=== PATIENT | female | born 1975 | race Caucasian/White ===

== ENCOUNTER 2017-01-08 06:10 | Emergency (ER) | payer MEDICAID ==
[2017-01-08 06:26] VITALS: TEMP 97.5
--- NOTE | 2017-01-08 06:55 | EDPHY ---
H & P Smoking Status: Current every day smoker HPI/ROS: CC: lower abdomial pain x 1.5 hours HPI: This 41-year-old female with past medical history of ovarian cysts, anxiety, fibromyalgia, hypertension, high cholesterol, and diabetes presents to the emergency department today complaining of lower abdominal discomfort that started 1 and 0.5 hours prior to arrival. She states the pain is 8/10. She points across her whole lower abdomen and cannot localize the pain but states it feels like her prior ovarian cyst. She has vaginal pressure when she sits. She was fine yesterday and has not been ill recently. She denies fever, chills , nausea, vomiting, dysuria, vaginal bleeding, or vaginal discharge. Normal bowel movements. She is sexually active. The 1st day of her last menstrual period was 2 weeks ago. She is 3 para 3, (+ 1 adopted child). She has had a tubal ligation. REVIEW OF SYSTEMS: Constitutional: No fever, no chills. Eyes: No discharge. ENT: No sore throat. Respiratory: No shortness of breath. Cardiac: No chest pain, no palpitations. Gastrointestinal: See HPI. Genitourinary: No hematuria. Musculoskeletal: No back pain. Skin: No rashes. Neurological: No headache. (Rosa Paz) Past Medical/Surgical History: PMH: Includes ovarian cysts, anxiety, fibromyalgia, kidney stones, hypertension, hyperlipidemia, diabetes, irritable bowel PSH: Tubal ligation, kidney stone surgery FH: Father has a history of hypertension, diabetes, high cholesterol; mother "has a hole in her heart" NKDA Meds: Lisinopril 40mg daily (Rosa Paz) Social History: The patient states she smokes 1/2 pack of tobacco products per day since age of 13; she drinks alcohol and her last drink was yesterday; she does smoke marijuana. Her primary care provider is April Loredo (Rosa Paz) Physical Exam: Physical Exam General Appearance: alert. no apparent distress EENT: PERRL/EOMI, normal ENT inspection, pharynx normal, TMs normal. No tonsillar exudate, no anisocoria, no purulent nasal drainage Neck: non-tender, full range of motion, supple, normal inspection. No: lymphadenopathy, no subcutaneous emphysema, no Kernig's sign, no Brudzinski's sign Respiratory: chest non-tender, lungs clear, normal breath sounds. No respiratory distress, no accessory muscle use, no decreased breath sounds, no crackles, no rhonchi, no stridor, no wheezing, no prolonged expiration, no splinting Cardiac/Chest: normal peripheral pulses, regular rate, regular rhythm. No edema, no gallop, no JVD, no bradycardia, no tachycardia, no murmur, no friction rub Peripheral Pulses: 2+: femoral (R), femoral (L), dorsalis-pedis (R), dorsalis- pedis (L) Abdomen: normal bowel sounds, non-tender, soft. No organomegaly, no pulsatile mass, non-distended, no guarding, no rebound, no hernia, not rigid, no ascites Back: normal inspection. No: CVA tenderness Skin: normal color, , warm/dry. No cyanosis, no diaphoresis, no jaundice, no rash, no signs of IVDA, no decubitus Lymphatic: no adenopathy Extremities: normal range of motion in all extremities, non-tender, normal inspection, normal capillary refill. No: pedal edema, swelling, Carlos's sign Neuro: no motor/sensory deficits, alert, normal mood/affect, oriented x 3. 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 II-XII, normal gait, no facial droop, no motor weakness, no sensory deficit, no speech abnormalities Psych; no cognition abnormalities, no psychiatric abnormalities (Martin Montanez ) Constitutional: Initial Vital Signs Temperature (C) 36.4 C 01/08/17 06:21 Heart Rate 98 01/08/17 06:21 Respiratory Rate 16 01/08/17 06:21 Blood Pressure 166/101 H 01/08/17 06:21 O2 Sat (%) 98 01/08/17 06:21 O2 Delivery Mode Room Air Allergies/Adverse Reactions: No Known Allergies Allergy (Verified 01/08/17 06:20) Home Medications: Medication Instructions Recorded Ibuprofen 01/08/17 Lisinopril [Zestril 40 mg (*)] 40 mg PO DAILY 01/08/17 Medical Decision Making - Diagnostics Imaging Results: Imaging Impressions Abdomen Ultrasound 01/08/17 06:56 Impression: Appendix not identified. Findings discussed with Emergency Department physician, Martin Montanez, on January 08, 2017 at 8:15 a.m. Pelvic/Renal Ultrasound 01/08/17 06:56 Impression: 1. Normal ovaries. No ovarian cyst, torsion, or free fluid. 2. Normal uterus. Findings discussed with Emergency Department physician, Martin Montanez, on January 08, 2017 at 8:31 a.m. ED Course/Re-evaluation: The patient was seen in the history of present illness was obtained. The patient was then signed out to the oncoming provider, Dr. Montanez for exam, further evaluation, workup and disposition. (Rosa Paz) 8:30 a.m. we discussed her ultrasound results which are inconclusive. She does have an elevated white blood cell count. On reexamination she does not have any right lower quadrant tenderness. I did recommend a CT scan to rule out appendicitis considering her elevated white count and initial pain area. The patient declines this. I also recommended a pelvic examination. She states that it hurt when she had the ultrasound performed. She denies any discharge or any promiscuous sexual behavior. She declined pelvic exam and states that she will follow up with her doctor at the [facility] over the next couple of days. I urged her vigorously to return to the emergency department later this afternoon or sooner for symptoms have not improved or if they have worsened. She currently feels comfortable and is eager to go home to be with her grandson. (Martin Montanez) Differential Diagnosis: Partial list of the Differential diagnosis considered include but were not limited to; appendicitis, ovarian cyst, ovarian torsion, urinary tract infection, PID and although unlikely based on the history and physical exam, I also considered kidney stone, aneurysm. I discussed these differential diagnoses and the plan with the patient as well as the usual and expected course. The patient understands that the diagnosis is provisional and that in medicine we are not always correct and that further workup is often warranted. Usual and customary warnings were given. All of the patient's questions were answered. The patient was instructed to return to the emergency department should the symptoms at all worsen or return, otherwise to followup with the physician as we discussed. (Martin Montanez) - Data Points Laboratory Results: Laboratory Results 01/08/17 06:48 01/08/17 06:48 01/08/17 01/08/17 01/08/17 07:40 06:48 06:48 WBC RBC Hgb Hct MCV MCH MCHC RDW Plt Count MPV Neut % (Auto) Lymph % (Auto) Coles % (Auto) Eos % (Auto) Baso % (Auto) Nucleat RBC Rel Count Absolute Neuts (auto) Absolute Lymphs (auto) Absolute Monos (auto) Absolute Eos (auto) Absolute Basos (auto) Absolute Nucleated RBC Immature Gran % Immature Gran # Sodium 137 mEq/L mEq/L (134-144) Potassium 4.4 mEq/L mEq/L (3.5-5.2) Chloride 105 mEq/L mEq/L (97-110) Carbon Dioxide 22 mEq/l mEq/l (22-31) Anion Gap 10 mEq/L mEq/L (8-16) BUN 17 mg/dL mg/dL (7-23) Creatinine 0.5 mg/dL L mg/dL (0.6-1.0) Estimated GFR > 60 Glucose 93 mg/dL mg/dL (70-100) Calcium 8.9 mg/dL mg/dL (8.5-10.4) Total Bilirubin 0.5 mg/dL mg/dL (0.1-1.4) Conjugated Bilirubin 0.4 mg/dL mg/dL (0.0-0.5) Unconjugated Bilirubin 0.1 mg/dL mg/dL (0.0-1.1) AST 26 IU/L IU/L (14-46) ALT 38 IU/L IU/L (9-52) Alkaline Phosphatase 88 IU/L IU/L (38-126) Total Protein 6.9 g/dL g/dL (6.3-8.2) Albumin 3.9 g/dL g/dL (3.5-5.0) Lipase 136 IU/L IU/L (23-300) Beta HCG, Qual NEGATIVE Urine Color YELLOW Urine Appearance HAZY Urine pH 5.5 (5.0-7.5) Ur Specific [place] >= 1.030 (1.002-1.030) Urine Protein NEGATIVE (NEGATIVE) Urine Ketones NEGATIVE (NEGATIVE) Urine Blood NEGATIVE (NEGATIVE) Urine Nitrate NEGATIVE (NEGATIVE) Urine Bilirubin NEGATIVE (NEGATIVE) Urine Urobilinogen 0.2 EU EU (0.2-1.0) Ur Leukocyte Esterase NEGATIVE (NEGATIVE) Urine RBC 0-1 /hpf /hpf (0-3) Urine WBC 1-3 /hpf /hpf (0-3) Ur Epithelial Cells 2+ /lpf H /lpf (NONE-1+) Amorphous Sediment 1+ /hpf /hpf (NONE-1+) Urine Bacteria 1+ /hpf H /hpf (NONE SEEN) Hyaline Casts 0-1 /lpf /lpf (0-1) Urine Mucus 1+ /lpf /lpf (NONE-1+) Urine Glucose NEGATIVE (NEGATIVE) 01/08/17 06:48 WBC 14.01 10^3/uL H 10^3/uL (3.80-9.50) RBC 4.61 10^6/uL 10^6/uL (4.18-5.33) Hgb 14.3 g/dL g/dL (12.6-16.3) Hct 43.9 % % (38.0-47.0) MCV 95.2 fL fL (81.5-99.8) MCH 31.0 pg pg (27.9-34.1) MCHC 32.6 g/dL g/dL (32.4-36.7) RDW 14.1 % % (11.5-15.2) Plt Count 300 10^3/uL 10^3/uL (150-400) MPV 9.7 fL fL (8.7-11.7) Neut % (Auto) 61.2 % % (39.3-74.2) Lymph % (Auto) 27.2 % % (15.0-45.0) Coles % (Auto) 7.5 % % (4.5-13.0) Eos % (Auto) 2.2 % % (0.6-7.6) Baso % (Auto) 1.1 % % (0.3-1.7) Nucleat RBC Rel Count 0.0 % % (0.0-0.2) Absolute Neuts (auto) 8.58 10^3/uL H 10^3/uL (1.70-6.50) Absolute Lymphs (auto) 3.81 10^3/uL H 10^3/uL (1.00-3.00) Absolute Monos (auto) 1.05 10^3/uL H 10^3/uL (0.30-0.80) Absolute Eos (auto) 0.31 10^3/uL 10^3/uL (0.03-0.40) Absolute Basos (auto) 0.15 10^3/uL H 10^3/uL (0.02-0.10) Absolute Nucleated RBC 0.00 10^3/uL 10^3/uL (0-0.01) Immature Gran % 0.8 % % (0.0-1.1) Immature Gran # 0.11 10^3/uL H 10^3/uL (0.00-0.10) Sodium Potassium Chloride Carbon Dioxide Anion Gap BUN Creatinine Estimated GFR Glucose Calcium Total Bilirubin Conjugated Bilirubin Unconjugated Bilirubin AST ALT Alkaline Phosphatase Total Protein Albumin Lipase Beta HCG, Qual Urine Color Urine Appearance Urine pH Ur Specific [place] Urine Protein Urine Ketones Urine Blood Urine Nitrate Urine Bilirubin Urine Urobilinogen Ur Leukocyte Esterase Urine RBC Urine WBC Ur Epithelial Cells Amorphous Sediment Urine Bacteria Hyaline Casts Urine Mucus Urine Glucose Medications Given: Discontinued Medications Sodium Chloride (Ns) 1,000 mls @ 0 mls/hr IV EDNOW ONE; Wide Open PRN Reason: Protocol Stop: 01/08/17 06:57 Last Admin: 01/08/17 07:01 Dose: 1,000 mls Lidocaine HCl 100 mg/ Sodium (Chloride) 110 mls @ 600 mls/hr IV EDNOW ONE Stop: 01/08/17 07:07 Last Admin: 01/08/17 07:40 Dose: 110 mls Metoclopramide HCl (Reglan Injection) 10 mg IVP EDNOW ONE Stop: 01/08/17 06:58 Last Admin: 01/08/17 07:40 Dose: 10 mg Ondansetron HCl (Zofran) 4 mg IVP EDNOW ONE Stop: 01/08/17 06:57 Last Admin: 01/08/17 07:54 Dose: Not Given Departure - Departure Disposition: Home, Routine, Self-Care Clinical Impression: Abdominal pain Qualifiers: Abdominal location: lower abdomen, unspecified Qualified Code(s): R10.30 - Lower abdominal pain, unspecified Condition: Fair Instructions: Acute Abdominal Pain (ED) Referrals: NONE *PRIMARY CARE P,. [Primary Care Provider] - As per Instructions [facility]. [Clinic] - 1 day without fail
[2017-01-08] MEDS ORDERED: ONDANSETRON 4 MG/2 ML VIAL IVP ONE (06:56)
[2017-01-08] MEDS ORDERED: NS 1,000 ML IV ONE (06:56)
[2017-01-08] MEDS ORDERED: LIDOCAINE 1% 100 MG in NS 100 ML IV ONE (06:57)
[2017-01-08] MEDS ORDERED: METOCLOPRAMIDE 10 MG/2 ML VIAL IVP ONE (06:57)
[2017-01-08 07:02] LABS: % IMMATURE GRANULYOCYTES 0.8 % (0.0-1.1); ABSOLUTE IMMATURE GRANULOCYTES 0.11 10^3/uL (0.00-0.10); ADD DIFF? NO; ADD MORPH? NO; ADD SCAN? NO; ATYPICAL LYMPHOCYTE FLAG 0 (0-99); FRAGMENT RBC FLAG 0 (0-99); HEMATOCRIT 43.9 % (38.0-47.0); HEMOGLOBIN 14.3 g/dL (12.6-16.3); LEFT SHIFT FLG 0 (0-99); LIPEMIA HEMOLYSIS FLAG 80 (0-99); MEAN CELL HEMOGLOBIN CONCENTR. 32.6 g/dL (32.4-36.7); MEAN CELL VOLUME 95.2 fL (81.5-99.8); MEAN PLATELET VOLUME 9.7 fL (8.7-11.7); PLATELET CLUMPS FLAG 0 (0-99); PLATELET COUNT 300 10^3/uL (150-400); RED BLOOD CELL COUNT 4.61 10^6/uL (4.18-5.33); RED CELL DISTRIBUTION WIDTH 14.1 % (11.5-15.2)
[2017-01-08 07:10] LABS: ALANINE AMINOTRANSFERASE 38 IU/L (9-52); ALBUMIN 3.9 g/dL (3.5-5.0); ALKALINE PHOSPHATASE 88 IU/L (38-126); ANION GAP 10 mEq/L (8-16); ASPARTATE AMINOTRANSFERASE 26 IU/L (14-46); BILIRUBIN,TOTAL 0.5 mg/dL (0.1-1.4); BILIRUBIN-CONJUGATED 0.4 mg/dL (0.0-0.5); BILIRUBIN-UNCONJUGATED 0.1 mg/dL (0.0-1.1); CALCIUM 8.9 mg/dL (8.5-10.4); CARBON DIOXIDE 22 mEq/l (22-31); CHLORIDE 105 mEq/L (97-110); CREATININE 0.5 mg/dL (0.6-1.0); GLOMERULAR FILTRATION RATE > 60; GLUCOSE 93 mg/dL (70-100); POTASSIUM 4.4 mEq/L (3.5-5.2); SODIUM 137 mEq/L (134-144); TOTAL PROTEIN 6.9 g/dL (6.3-8.2)
[2017-01-08 07:46] LABS: COLOR YELLOW; LEUKOCYTE ESTERASE,URINE NEGATIVE (NEGATIVE); NITRITE,URINE NEGATIVE (NEGATIVE); PH,URINE 5.5 (5.0-7.5)
[2017-01-08 08:10] LABS: AMORPHOUS 1+ /hpf (NONE-1+); BACTERIA 1+ /hpf (NONE SEEN); HYALINE CASTS 0-1 /lpf (0-1); MUCUS 1+ /lpf (NONE-1+); RBC,URINE 0-1 /hpf (0-3)
[2017-01-08 08:12] VITALS: PULSE 84
[2017-01-08 08:44] VITALS: BP 130/74; RESP 18; O2SAT 96
[2017-01-08] MEDS ORDERED: IOPAMIDOL (ISOVUE-300) 100 ML BTL ONE (08:45)
== END 2017-01-08 08:48 | disposition home or self-care (01) ==
LOC: CED 06:10
DX: R10.30 Lower abdominal pain, unspecified (principal); I10 Essential (primary) hypertension; E86.9 Volume depletion, unspecified; E11.9 Type 2 diabetes mellitus without complications; F17.200 Nicotine dependence, unspecified, uncomplicated; Z98.51 Tubal ligation status
CPT/HCPCS: 76705-PO; 76856-PO; 80048-PO; 80076-PO; 81003-PO; 81015-PO; 83690-PO; 84703-PO; 85025-PO; 96374; J2405; J2765; Q9967

== ENCOUNTER 2017-01-28 13:04 | Emergency (ER) | payer MEDICAID ==
[2017-01-28] MEDS ORDERED: LET GEL TOPICAL 1 EA SYR TP ONE (13:13)
[2017-01-28 13:18] VITALS: RESP 18; TEMP 97.9
[2017-01-28] MEDS ORDERED: TDAP ADULT 0.5 ML INJ (BOOSTRIX) IM ONE (13:25)
--- NOTE | 2017-01-28 13:56 | EDPHY ---
H & P Time Seen by Provider: 01/28/17 13:21 HPI/ROS: This patient was working in her yd and reached up abruptly to grab the top a chain link fence catching a sharp part of the fence and causing a laceration to the palm of her left hand shortly prior to arrival with moderate pain and mild bleeding that slowed with direct pressure prior to arrival. She denies any other injuries from the incident. She has no other associated symptoms. ROS: Neuro: No numbness or tingling. Musculoskeletal: No difficulty moving the fingers on the affected hand. 5 point ROS is otherwise negative. Smoking Status: Current every day smoker Physical Exam: Physical Exam Vital signs are normal. General: No acute distress HEENT: Atraumatic. Eyes: Pupils equal and react to light. Extraocular motions are intact. Lungs: No respiratory distress. Cardiac: Brisk capillary refill is intact throughout. Extremities: Atraumatic normal except for left hand wounds Left hand: Patient has a 2.5 cm full-thickness laceration to the center of the palm of her left hand with mild bleeding. Subcutaneous tissues evident but no deeper structures are injured. No foreign bodies are visualized on direct examination. Skin: No rash or pallor. Neuro: Alert with no sensorimotor deficits in the affected extremity. Constitutional: Initial Vital Signs Temperature (C) 36.6 C 01/28/17 13:15 Heart Rate 103 H 01/28/17 13:15 Respiratory Rate 18 01/28/17 13:15 Blood Pressure 135/92 H 01/28/17 13:15 O2 Sat (%) 96 01/28/17 13:15 O2 Delivery Mode Room Air Allergies/Adverse Reactions: No Known Allergies Allergy (Verified 01/28/17 13:15) Home Medications: Medication Instructions Recorded Ibuprofen 01/08/17 Lisinopril [Zestril 40 mg (*)] 40 mg PO DAILY 01/08/17 MDM/Departure - MDM Procedures: The wound is 2.5 cm long described physical exam. The wound was copiously irrigated with saline. The wound was explored for foreign bodies and none were found. The wound was prepped and draped in the normal sterile fashion. The wound was anesthetized using let solution followed by 50 50 mix of 0.5% Marcaine and 1% plain lidocaine, 27 gauge needle-5 mL with good effect The edges were reapproximated using 4 0 Prolene-9 running sutures with good hemostasis and cosmesis. The patient tolerated the procedure well. There were no complications. A dressing is placed by our tech and we counseled her regarding wound care. Medications Given: Discontinued Medications Diphtheria/Tetanus/Acell Pertussis (Boostrix) 0.5 ml IM .ONCE ONE Stop: 01/28/17 13:26 Last Admin: 01/28/17 13:52 Dose: 0.5 ml Tetracaine/Epinephrine/Lidocaine (Let Gel Topical) 1 ea TP EDNOW ONE Stop: 01/28/17 13:14 Last Admin: 01/28/17 13:17 Dose: 1 ea ED Course/Re-evaluation: Let gel was applied to the wound. - Depart Disposition: Home, Routine, Self-Care Clinical Impression: Hand laceration Qualifiers: Encounter type: initial encounter Foreign body presence: without foreign body Laterality: left Qualified Code(s): S61.412A - Laceration without foreign body of left hand, initial encounter Condition: Good Instructions: Care For Your Stitches (ED) Additional Instructions: Diagnosis: Hand laceration Plan: Ibuprofen Tylenol for pain Keep the wound clean and dry for the next 2 days Then clean it daily with warm soapy water Return for suture removal in 10-12 days. Return sooner if he develops redness, discharge or other concerns for infection. Referrals: BIJAN CAMPOS,. [Primary Care Provider] - As per Instructions
[2017-01-28 14:25] VITALS: BP 124/95; PULSE 95; O2SAT 97
== END 2017-01-28 14:24 | disposition home or self-care (01) ==
LOC: CED 13:04
PROC: 0HQGXZZ Repair Left Hand Skin, External Approach (ICD-10-PCS; principal; 2017-01-28)
DX: S61.412A Laceration without foreign body of left hand, initial encounter (principal); F17.200 Nicotine dependence, unspecified, uncomplicated; Z23 Encounter for immunization; W26.8XXA Contact with other sharp object(s), not elsewhere classified, initial encounter; Y92.007 Garden or yard of unspecified non-institutional (private) residence as the place of occurrence of the external cause; Y99.8 Other external cause status; Y93.89 Activity, other specified

== ENCOUNTER → 2017-02-04 01:57 | Emergency (ER) | payer MEDICAID ==
[2017-02-04 01:08] VITALS: BP 128/97; PULSE 97; RESP 18; TEMP 97.3; O2SAT 95
--- NOTE | 2017-02-04 01:16 | EDPHY ---
H & P Time Seen by Provider: 02/04/17 01:13 MST HPI/ROS: 41-year-old female presents complaining of left hand infection. She injured her hand on January 28 on a fence and had it sutured here she presents today stating it is quite painful, she is having swelling and she feels like there has been pus coming from the wound. She also complains a bump on her left abdomen that feels like a marble and has been draining primarily blood and pus as well. No fevers or chills. Review of systems As per HPI General no fever no chills no weakness HEENT no eye pain no eye discharge. No eye redness, no sore throat Respiratory no cough, no shortness of breath Cardiac no chest pain, no peripheral edema GI no abdominal pain, no diarrhea, no constipation, no nausea, no vomiting no flank pain, no hematuria, no dysuria Musculoskeletal no myalgias, no joint pain Heme no easy bruising, no easy bleeding Endo no polyuria, no polydipsia Skin positive rashes, no pruritus Neuro no syncope, no dizziness, no headaches Psych is no suicidal ideation, no homicidal ideation Past Medical/Surgical History: Hypertension Fibromyalgia Ovarian cyst Social History: Patient smokes half pack per day, drinks alcohol on a regular basis and smokes marijuana Smoking Status: Current every day smoker Physical Exam: 41-year-old female alert and oriented no acute distress nontoxic appearance, afebrile Vital signs stable Atraumatic normocephalic Neck no JVD Lungs clear to auscultation, no respiratory distress Heart regular rate and rhythm Abdomen non distended, nabs, soft nt left mid abdomen with 1cm firm area dried purulent drainage, non fluctuant Extremities no cyanosis clubbing edema left hand at site of running suture mild erythema and slight swelling, with ttp , pinpoint area at edge of wound distally with apperance of pus under skin edge all digits from, wrist from, elbow, shoulder no lymphangitic streaks, no axillary ln good cap refill strong radial and ulnar pulse Constitutional: Initial Vital Signs Temperature (C) 36.3 C 02/04/17 01:59 MDT Heart Rate 97 02/04/17 01:59 MDT Respiratory Rate 18 02/04/17 01:59 MDT Blood Pressure 128/97 H 02/04/17 01:59 MDT O2 Sat (%) 95 02/04/17 01:59 MDT O2 Delivery Mode Room Air Allergies/Adverse Reactions: No Known Allergies Allergy (Verified 02/04/17 01:58 MDT) Home Medications: Medication Instructions Recorded Ibuprofen 01/08/17 Lisinopril [Zestril 40 mg (*)] 40 mg PO DAILY 01/08/17 Clindamycin HCl [Clindamycin] 300 mg PO TID #30 cap 02/04/17 Medical Decision Making ED Course/Re-evaluation: Patient seen and evaluated for possible wound infection. left Hand there is mild swelling, mild erythema and tenderness to palpation consistent with an infected wound. She additionally has an area on her left abdomen with signs of a boil and dried purulent drainage. I discussed with the patient that I am very concerned there is a mild infection and that the treatment would be to remove the sutures . I also explained that it is possible that the wound would re-open with the suture removal, thus leaving potential for a larger scar. I explained my concern is related to both the new signs and symptoms she complains of on her hand and the fact that she has an obvious local infection on her abdomen, likely MRSA that she has been handling with her hands. The suture was removed, there was slight drainage from the wound, no evidence of retained suture. It was then dressed. The boil on her abdomen was small and had already drained, currently non fluctuant Imp/Plan #1 wound infection of sutured wound left hand Sutures removed pt placed on clindamycin considered bactrim but it interacts with her lisinopril, so chose clinda for mrsa coverag #2 boil, self draining, currently non fluctuan advised warm compresses pt placed on clindamycin Advised [facility] or return to ER if worsening Differential Diagnosis: left hand wound infection, left hand normal wound healing, left hand abscess left abdominal wall boil - Data Points Medications Given: Discontinued Medications Clindamycin (Cleocin 150 Mg Prepack#6) 1 btl TAKEHOME EDNOW ONE PRN Reason: Protocol Stop: 02/04/17 01:34 MST Last Admin: 02/04/17 02:00 Dose: 1 btl Departure - Departure Disposition: Home, Routine, Self-Care Clinical Impression: Wound infection, Boil of trunk Condition: Good Instructions: Clindamycin (By mouth), Wound Infection (ED), Furunculosis and Carbunculosis (ED) Additional Instructions: follow with your primary care this week for recheck of wound and boil. Referrals: Patient,NotPresent [Primary Care Provider] - As per Instructions Prescriptions: Clindamycin HCl [Clindamycin] 300 mg PO TID #30 cap
[~2017-02-04 01:57] MED LIST: CLINDAMYCIN 150MG PREPACK#6 BTL TAKEHOME ONE
== END | disposition home or self-care (01) ==
LOC: CED 01:57
DX: T81.4XXA Infection following a procedure, initial encounter (principal); L02.221 Furuncle of abdominal wall; I10 Essential (primary) hypertension; F17.200 Nicotine dependence, unspecified, uncomplicated; Y82.8 Other medical devices associated with adverse incidents

== ENCOUNTER 2017-02-25 17:33 | Emergency (ER) | payer MEDICAID ==
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
[2017-02-25] MEDS: IBUPROFEN 600 MG TAB PO ONE ×2 (17:55→18:03)
[2017-02-25] MEDS: LET GEL TOPICAL 1 EA SYR TP ONE ×2 (17:55→18:02)
[2017-02-25] MEDS ORDERED: HYDROCODONE/APAP 5/325 TAB PO ONE (18:36)
[2017-02-25] MEDS ORDERED: IBUPROFEN 600 MG TAB PO ONE (19:16)
[2017-02-25 19:36] VITALS: BP 131/99; PULSE 110; RESP 18; TEMP 98.4; O2SAT 95
== END 2017-02-25 19:34 | disposition home or self-care (01) ==
LOC: CED 17:33
DX: S00.81XA Abrasion of other part of head, initial encounter (principal); S50.312A Abrasion of left elbow, initial encounter; S80.212A Abrasion, left knee, initial encounter; S80.211A Abrasion, right knee, initial encounter; S40.812A Abrasion of left upper arm, initial encounter; S40.212A Abrasion of left shoulder, initial encounter; J45.909 Unspecified asthma, uncomplicated; E11.9 Type 2 diabetes mellitus without complications; I10 Essential (primary) hypertension; F17.200 Nicotine dependence, unspecified, uncomplicated; V48.9XXA Unspecified car occupant injured in noncollision transport accident in traffic accident, initial encounter; Y92.410 Unspecified street and highway as the place of occurrence of the external cause
CPT/HCPCS: 70450-PO; 71020-PO; 73030-PO; 73080-PO; A4565

== ENCOUNTER → 2017-02-28 | Outpatient (CLI) | payer MEDICAID | LOC: CIMAGING 14:43 | DX: S93.402A Sprain of unspecified ligament of left ankle, initial encounter (principal) | CPT/HCPCS: 73610-PO ==

== ENCOUNTER → 2017-03-01 | Outpatient (CLI) | payer MEDICAID | LOC: CIMAGING 20:06 | PROVIDERS: ATTEND Nurse Practitioner Women's Health | DX: M25.572 Pain in left ankle and joints of left foot (principal); V49.3XXA Car occupant (driver) (passenger) injured in unspecified nontraffic accident, initial encounter | CPT/HCPCS: 73630-PO ==

== ENCOUNTER 2017-03-08 14:27 | Emergency (ER) | payer MEDICAID ==
[2017-03-08 14:39] VITALS: BP 156/105; PULSE 95; RESP 18; TEMP 98.1; O2SAT 99
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
== END 2017-03-08 14:59 | disposition home or self-care (01) ==
LOC: CED 14:27
DX: M53.3 Sacrococcygeal disorders, not elsewhere classified (principal); J45.909 Unspecified asthma, uncomplicated; I10 Essential (primary) hypertension; F17.200 Nicotine dependence, unspecified, uncomplicated; E11.9 Type 2 diabetes mellitus without complications

== ENCOUNTER 2017-04-20 23:11 | Emergency (ER) | payer MEDICAID ==
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
[2017-04-20 23:28] VITALS: BP 130/89; PULSE 112; RESP 18; TEMP 97.9; O2SAT 95
[2017-04-20] MEDS ORDERED: CLINDAMYCIN 150MG PREPACK#6 BTL TAKEHOME ONE (23:45)
== END 2017-04-21 | disposition home or self-care (01) ==
LOC: CED 23:11
DX: L02.01 Cutaneous abscess of face (principal); L02.92 Furuncle, unspecified; F17.200 Nicotine dependence, unspecified, uncomplicated

== ENCOUNTER 2017-08-09 18:09 | Emergency (ER) | payer MEDICAID ==
--- NOTE | 2017-08-09 18:11 | EDPHY ---
H & P Time Seen by Provider: 08/09/17 18:11 HPI/ROS: HPI CHIEF COMPLAINT: Increasing acne on face. HISTORY OF PRESENT ILLNESS: Patient is a very pleasant 41-year-old female, she has been under great amount of stress recently, she has a history of fibromyalgia, diabetes, head acne. She smokes tobacco. Distally she has asthma. She presents emergency room with increasing acne on her chin/face. 1 particular area appears to be infected and her she denies fever. Has rather large pimple on the right lower mandible region. No significant pain. No fever. She states it has been draining a little bit. No abscess. Past Medical History: Diabetes, which is we controlled. Fibromyalgia, asthma, acne Past Surgical History: No recent surgery. Social History: Denies daily use of alcohol drugs. Smokes tobacco daily. Family History: Noncontributory. ROS REVIEW OF SYSTEMS: A comprehensive 10 point review of systems is otherwise negative aside from elements mentioned in the history of present illness. Exam Constitutional appears well nontoxic no acute distress, triage nursing summary reviewed, vital signs reviewed, awake/alert. Eyes normal conjunctivae and sclera, EOMI, PERRLA. HENT face: Acne around her mid tibia region and lumbar face. On the way lower mandibular region there is a pimple present. Draining. No abscess. No significant cellulitis. normal inspection, atraumatic, moist mucus membranes, no epistaxis, neck supple/ no meningismus, no raccoon eyes. Respiratory clear to auscultation bilaterally, normal breath sounds, no respiratory distress, no wheezing. Cardiovascular rate normal, regular rhythm, no murmur, no edema, distal pulses normal. Gastrointestinal soft, non-tender, no rebound, no guarding, normal bowel sounds, no distension, no pulsatile mass. Genitourinary no CVA tenderness. Musculoskeletal no midline vertebral tenderness, full range of motion, no calf swelling, no tenderness of extremities, no meningismus, good pulses, neurovascularly intact. Skin pink, warm, & dry, no rash, skin atraumatic. Neurologic awake, alert and oriented x 3, AAOx3, moves all 4 extremities equally, motor intact, sensory intact, CN II-XII intact, normal cerebellar, normal vision, normal speech. Psychiatric normal mood/affect. Heme/Lymph/Immune no lymphadenopathy. Differential Diagnosis: Includes but is not limited to in a particular order facial acne, cellulitis, infected pimple, early facial abscess Medical Decision Making: Recommend patient she washes her face twice a day. Compresses to this area of inflammation. Antibiotics as prescribed. Additionally understands return emergency room if she develops worsening symptoms includes worsening swelling, pain, fever, redness or drainage Additionally patient requesting refill of albuterol inhaler for underlying asthma she has no asthma complaints today. But will provide new albuterol inhaler. Source: Patient - Personal History Tetanus Vaccine Date: 2016 - Medical/Surgical History Hx Asthma: Yes Hx Chronic Respiratory Disease: No Hx Diabetes: Yes Hx Cardiac Disease: Yes Hx Renal Disease: No Hx Cirrhosis: No Hx Alcoholism: No Hx HIV/AIDS: No Hx Splenectomy or Spleen Trauma: No Other PMH: DM 2, kidney stones, ovarian cysts, HTN, IBS, fibromyalgia. - Social History Smoking Status: Current every day smoker Allergies/Adverse Reactions: No Known Allergies Allergy (Verified 08/09/17 18:17) Home Medications: Medication Instructions Recorded Lisinopril [Zestril 40 mg (*)] 40 mg PO DAILY 01/08/17 Mupirocin 2% [Bactroban 2% Oint 1 gunjan TOP BID 28 Days ointtube 04/20/17 (RX)] Clindamycin HCl [Clindamycin] 300 mg PO TID #30 cap 08/09/17 Mupirocin 2% [Bactroban 2% Nasal 1 gunjan NASAL BID #1 tube 08/09/17 (RX)] Departure - Departure Disposition: Home, Routine, Self-Care Clinical Impression: Acne Qualifiers: Acne type: other acne Qualified Code(s): L70.8 - Other acne Cellulitis Qualifiers: Site of cellulitis: face Qualified Code(s): L03.211 - Cellulitis of face Condition: Good Instructions: Cellulitis (ED) Additional Instructions: 1. Keep her face clean as possible. Wash twice a day. 2. Warm compresses to area infection. 3. Antibiotics as prescribed. 4. Return emergency room if there is worsening symptoms questions or concerns. Prescriptions: Clindamycin HCl [Clindamycin] 300 mg PO TID #30 cap Mupirocin 2% [Bactroban 2% Nasal (RX)] 1 gunjan NASAL BID #1 tube
[2017-08-09 18:23] VITALS: BP 139/87
[2017-08-09] MEDS ORDERED: ALBUTEROL INH PREPACK MDI TAKEHOME ONE (18:24)
== END 2017-08-09 18:36 | disposition home or self-care (01) ==
LOC: CED 18:09
DX: L70.8 Other acne (principal); L03.211 Cellulitis of face; E11.9 Type 2 diabetes mellitus without complications; J45.909 Unspecified asthma, uncomplicated; F17.200 Nicotine dependence, unspecified, uncomplicated; I10 Essential (primary) hypertension

== ENCOUNTER 2018-01-07 18:52 | Emergency (ER) | payer MEDICAID ==
[2018-01-07 18:56] VITALS: BP 100/48
[2018-01-07] MEDS ORDERED: IPRATROPIUM/ALBUTEROL 3 ML DEYVIAL IH ONE (19:23)
[2018-01-07] MEDS ORDERED: predniSONE 20 MG TAB PO ONE (19:23)
[2018-01-07] MEDS ORDERED: ALBUTEROL INH PREPACK MDI TAKEHOME ONE (19:23)
--- NOTE | 2018-01-07 19:23 | EDPHY ---
H & P Stated Complaint: resp diff. Time Seen by Provider: 01/07/18 19:04 HPI/ROS: CHIEF COMPLAINT: Cough, wheezing HISTORY OF PRESENT ILLNESS: 42-year-old female with asthma presents with prolonged cough and wheezing. Onset of a frequent cough 2 months ago, now associated with wheezing and a hoarse voice. Ran out of her inhaler. No shortness of breath, runny nose or fever. REVIEW OF SYSTEMS: complete 10 point ROS reviewed and is negative except for the noted elements in the HPI - Personal History LMP (Females 10-55): 1-7 Days Ago Current Tetanus/Diphtheria Vaccine: Yes Current Tetanus Diphtheria and Acellular Pertussis (TDAP): Yes Tetanus Vaccine Date: 2016 - Medical/Surgical History Hx Asthma: Yes Hx Chronic Respiratory Disease: No Hx Diabetes: Yes Hx Cardiac Disease: Yes Hx Renal Disease: No Hx Cirrhosis: No Hx Alcoholism: No Hx HIV/AIDS: No Hx Splenectomy or Spleen Trauma: No Other PMH: DM 2, kidney stones, ovarian cysts, HTN, IBS, fibromyalgia. - Social History Smoking Status: Heavy smoker - Physical Exam Exam: General Appearance: Alert, pleasant Eyes: Pupils equal and round, no conjunctival injection ENT, Mouth: Mucous membranes moist Neck: Normal inspection Respiratory: Lungs are clear to auscultation, no wheezing Cardiovascular: Regular rate and rhythm Gastrointestinal: Abdomen is soft and nontender Neurological: A&O, nonfocal, normal gait Skin: Warm and dry, no rash Extremities: Normal inspection Psychiatric: Mood and affect normal Constitutional: Initial Vital Signs Temperature (C) 36.8 C 01/07/18 18:53 Heart Rate 118 H 01/07/18 18:53 Respiratory Rate 16 01/07/18 18:53 Blood Pressure 100/48 L 01/07/18 18:53 O2 Sat (%) 95 01/07/18 18:53 O2 Delivery Mode Room Air Allergies/Adverse Reactions: No Known Allergies Allergy (Verified 08/09/17 18:17) Home Medications: Medication Instructions Recorded Lisinopril [Zestril 40 mg (*)] 40 mg PO DAILY 01/08/17 Mupirocin 2% [Bactroban 2% Oint 1 gunjan TOP BID 28 Days ointtube 04/20/17 (RX)] Clindamycin HCl [Clindamycin] 300 mg PO TID #30 cap 08/09/17 Mupirocin 2% [Bactroban 2% Nasal 1 gunjan NASAL BID #1 tube 08/09/17 (RX)] predniSONE 1 tab PO DAILY #15 tab 01/07/18 Medical Decision Making ED Course/Re-evaluation: A DuoNeb and prednisone 60 mg orally given. Feels better after duoneb, decreased coughing. Lungs CTA. No hypoxia and no evidence of pneumonia. Will f/u PCP. Differential Diagnosis: Includes though not limited to pneumonia, pulmonary embolism, CHF, hypoxia - Data Points Medications Given: Discontinued Medications Albuterol Sulfate (Proventil Inh Prepack) 1 mdi TAKEHOME EDNOW ONE Stop: 01/07/18 19:24 Last Admin: 01/07/18 19:33 Dose: 1 mdi Albuterol/Ipratropium (Duoneb) 3 ml IH EDNOW ONE Stop: 01/07/18 19:24 Last Admin: 01/07/18 19:31 Dose: 3 ml Prednisone (Prednisone) 60 mg PO EDNOW ONE Stop: 01/07/18 19:24 Last Admin: 01/07/18 19:30 Dose: 60 mg Departure - Departure Disposition: Home, Routine, Self-Care Clinical Impression: Acute bronchitis with bronchospasm Condition: Good Instructions: Acute Bronchitis (ED), Bronchospasm (ED) Additional Instructions: Drink plenty of fluids. Follow-up that [facility] for recheck. Return for worsening symptoms or any concerns. Referrals: [facility] [Primary Care Provider] - As per Instructions Prescriptions: predniSONE 1 tab PO DAILY #15 tab
== END 2018-01-07 19:45 | disposition home or self-care (01) ==
DX: J20.9 Acute bronchitis, unspecified (principal); F17.200 Nicotine dependence, unspecified, uncomplicated
CPT/HCPCS: J7512

== ENCOUNTER 2018-01-13 15:06 | Emergency (ER) | payer MEDICAID ==
[2018-01-13] MEDS ORDERED: predniSONE 20 MG TAB PO ONE (16:03)
[2018-01-13] MEDS ORDERED: IPRATROPIUM/ALBUTEROL 3 ML DEYVIAL IH ONE (16:03)
--- NOTE | 2018-01-13 16:08 | EDPHY ---
H & P Stated Complaint: cough, sore thrt-finishing pred for brochitis Time Seen by Provider: 01/13/18 15:28 HPI/ROS: CHIEF COMPLAINT: Cough, chest tightness HISTORY OF PRESENT ILLNESS: 42-year-old female with asthma presents with cough and chest tightness. She was seen by me 1 week ago for similar symptoms. Using her albuterol inhaler frequently, now has run out of the inhaler. She has almost completed the entire course prednisone. She continues to have a frequent dry cough and feels that her asthma is acting up. No fever and no cold symptoms. Continues to smoke up to 1 pack a day. REVIEW OF SYSTEMS: complete 10 point ROS reviewed and is negative except for the noted elements in the HPI - Personal History LMP (Females 10-55): 15-21 Days Ago Tetanus Vaccine Date: 2016 - Medical/Surgical History Hx Asthma: Yes Hx Chronic Respiratory Disease: No Hx Diabetes: Yes Hx Cardiac Disease: No Hx Renal Disease: No Hx Cirrhosis: No Hx Alcoholism: No Hx HIV/AIDS: No Hx Splenectomy or Spleen Trauma: No Other PMH: NIDDM, kidney stones, HTN, IBS, fibromyalgia. - Social History Smoking Status: Heavy smoker Additional Social History: Homeless PCP: [facility] - Physical Exam Exam: General Appearance: Alert, pleasant, frequent cough Eyes: Pupils equal and round, no conjunctival pallor ENT, Mouth: Mucous membranes moist Neck: Normal inspection Respiratory: Lungs are clear to auscultation, no wheezing Cardiovascular: Regular rate and rhythm Gastrointestinal: Abdomen is soft and nontender Neurological: A&O, nonfocal, normal gait Skin: Warm and dry, no rash Extremities: Normal inspection Psychiatric: Mood and affect normal Constitutional: Initial Vital Signs Temperature (C) 36.5 C 01/13/18 15:15 Heart Rate 88 01/13/18 15:15 Respiratory Rate 20 01/13/18 15:15 Blood Pressure 150/87 H 01/13/18 15:15 O2 Sat (%) 97 01/13/18 15:15 O2 Delivery Mode Room Air Allergies/Adverse Reactions: No Known Allergies Allergy (Verified 08/09/17 18:17) Home Medications: Medication Instructions Recorded Albuterol [Proventil Inhaler HFA 2 puffs IH QID PRN #1 mdi 01/13/18 (*)] Azithromycin [Zithromax] 250 mg PO DAILY #6 tab 01/13/18 Benzonatate [Tessalon Pearles (RX)] 100 mg PO TID PRN #15 cap 01/13/18 predniSONE 01/13/18 predniSONE 1 tab PO DAILY #15 tab 01/13/18 Medical Decision Making ED Course/Re-evaluation: This patient presents with persistent cough and presumed asthma exacerbation. She does not have wheezing on exam, which she states is typical of her asthma. A DuoNeb was given, after which the cough lessened and she felt better. Lungs remain clear to auscultation. I will give her a repeat tapering dose of prednisone, albuterol inhaler and a prescription for Zithromax. Strongly encouraged the patient to stop smoking. Will follow up with PCP. Differential Diagnosis: Includes though is not limited to pneumonia, bronchospasm, pneumothorax, pulmonary embolism, hypoxia. - Data Points Medications Given: Discontinued Medications Albuterol/Ipratropium (Duoneb) 3 ml IH EDNOW ONE Stop: 01/13/18 16:04 Last Admin: 01/13/18 16:17 Dose: 3 ml Prednisone (Prednisone) 60 mg PO EDNOW ONE Stop: 01/13/18 16:04 Last Admin: 01/13/18 16:17 Dose: 60 mg Departure - Departure Disposition: Home, Routine, Self-Care Clinical Impression: Acute bronchitis Qualifiers: Bronchitis organism: other organism Qualified Code(s): J20.8 - Acute bronchitis due to other specified organisms Exacerbation of asthma Qualifiers: Asthma severity: moderate Asthma persistence: persistent Qualified Code(s): J45.41 - Moderate persistent asthma with (acute) exacerbation Condition: Good Instructions: Acute Bronchitis (ED), Bronchospasm (ED) Additional Instructions: Drink plenty of fluids. Stop smoking. Return for worsening symptoms or any concerns. Referrals: HUGO GRIFFITH [Primary Care Provider] - 2-3 days, if not improved Prescriptions: Albuterol [Proventil Inhaler HFA (*)] 2 puffs IH QID PRN #1 mdi PRN Reason: Short Of Breath/Dyspnea Azithromycin [Zithromax] 250 mg PO DAILY #6 tab Benzonatate [Tessalon Pearles (RX)] 100 mg PO TID PRN #15 cap PRN Reason: cough predniSONE 1 tab PO DAILY #15 tab
[2018-01-13 16:20] VITALS: BP 125/87
== END 2018-01-13 16:37 | disposition home or self-care (01) ==
DX: J20.8 Acute bronchitis due to other specified organisms (principal); J45.41 Moderate persistent asthma with (acute) exacerbation; F17.210 Nicotine dependence, cigarettes, uncomplicated
CPT/HCPCS: J7512

== ENCOUNTER 2018-04-02 08:38 | Emergency (ER) | payer MEDICAID ==
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
[2018-04-02] MEDS ORDERED: DEXAMETHASONE 4 MG TAB PO ONE (09:11)
[2018-04-02] MEDS ORDERED: IPRATROPIUM/ALBUTEROL 3 ML DEYVIAL IH ONE (09:11)
[2018-04-02 11:26] VITALS: BP 145/89
== END 2018-04-02 11:25 | disposition home or self-care (01) ==
DX: J10.1 Influenza due to other identified influenza virus with other respiratory manifestations (principal); J40 Bronchitis, not specified as acute or chronic; M25.572 Pain in left ankle and joints of left foot; V89.0XXA Person injured in unspecified motor-vehicle accident, nontraffic, initial encounter; F17.210 Nicotine dependence, cigarettes, uncomplicated; M79.7 Fibromyalgia; J45.909 Unspecified asthma, uncomplicated; E11.9 Type 2 diabetes mellitus without complications; K58.9 Irritable bowel syndrome, unspecified

== ENCOUNTER 2018-04-09 09:52 | Emergency (ER) | payer MEDICAID ==
[2018-04-09] MEDS ORDERED: KETOROLAC 30 MG/1 ML SDV IM ONE (10:04)
[2018-04-09] MEDS ORDERED: DEXAMETHASONE 4 MG TAB PO ONE (10:04)
[2018-04-09] MEDS ORDERED: IPRATROPIUM/ALBUTEROL 3 ML DEYVIAL IH ONE (10:04)
[2018-04-09] MEDS ORDERED: LORazepam 2 MG/ML INJ IM ONE (10:05)
--- NOTE | 2018-04-09 10:06 | EDPHY ---
H & P Stated Complaint: dx flu /bronchitis last week cp sob Time Seen by Provider: 04/09/18 10:01 HPI/ROS: HPI: This is a 42-year-old female who presents with Chief Complaint: dx flu /bronchitis last week cp sob Location: Right-sided chest Quality: Pain and shortness of breath Duration: 3 days Signs and Symptoms: no shortness of breath at rest, + shortness of breath on exertion, + nonproductive cough, + right lateral chest pain, no palpitations, no lower extremity edema, no wheezing, no orthopnea, no paroxysmal nocturnal dyspnea, no fever, no injury/trauma, no hemoptysis, no carpal pedal spasms Timing: Acute, intermittent, worse with inspiration Severity: 11/09 Context: Patient has a history of diabetes mellitus, asthma presents with complaints of right-sided lateral chest discomfort over the last 3 days that is worse with inspiration and touching the area. She was seen in this emergency room on 04/02/2018 and diagnosed with influenza a and bronchitis. She was given an inhaler and Tamiflu for which patient has been using. Chest x-ray at that time showed bronchitic changes but no pneumonia. Patient is a heavy smoker. Patient reports that she believes that she has pleurisy on the right. She reports that chest discomfort is increased with cough and inspiration. Modifying Factors: See above Comment: ROS: A comprehensive 10 system review of systems is otherwise negative aside from elements mentioned in the history of present illness. MEDICAL/SURGICAL/SOCIAL HISTORY: Medical history: NIDDM "got off metformin", asthma, IBS, fibromyalgia. LMP 2- 3 weeks ago. Surgical history: Denies Social history: Heavy smoker. Employed. CONSTITUTIONAL: Moderate distress, nontoxic-appearing, anxious, overweight female, awake and alert, no obvious distress HEENT: Atraumatic and normocephalic, PERRL, EOMI. Nares patent; no rhinorrhea; no nasal mucosal edema. Tympanic membranes clear. Oropharynx clear, no exudate and moist pink mucosa. Airway patent. No lymphadenopathy. No meningismus. Cardiovascular: Normal S1/S2, regular rate, regular rhythm, without murmur rub or gallop. PULMONARY/CHEST: Symmetrical and reproducible right lateral rib tenderness. No crepitus. Clear to auscultation bilaterally. Poor air movement. Shallow inspiratory effort. Moderate accessory muscle usage. ABDOMEN: Soft, nondistended, nontender, no rebound, no guarding, no peritoneal signs, no masses or organomegaly. No CVAT. EXTREMITIES: 2/2 pulses, strength 5/5, no deformities, no clubbing, no cyanosis or edema. NEUROLOGICAL: no focal neuro deficits. GCS 15. SKIN: Warm and dry, no erythema. Multiple tattoos seen. no rash. Good capillary refill. Source: Patient Exam Limitations: No limitations - Personal History LMP (Females 10-55): 22-28 Days Ago Current Tetanus Diphtheria and Acellular Pertussis (TDAP): Yes Tetanus Vaccine Date: 2016 - Medical/Surgical History Hx Asthma: Yes Hx Chronic Respiratory Disease: No Hx Diabetes: Yes Hx Cardiac Disease: No Hx Renal Disease: No Hx Cirrhosis: No Hx Alcoholism: No Hx HIV/AIDS: No Hx Splenectomy or Spleen Trauma: No Other PMH: NIDDM "got off metformin", asthma, IBS, fibromyalgia. - Social History Smoking Status: Heavy smoker Constitutional: Initial Vital Signs Temperature (C) 36.7 C 04/09/18 09:55 Heart Rate 93 04/09/18 09:55 Respiratory Rate 37 H 04/09/18 09:55 Blood Pressure 127/92 H 04/09/18 09:55 O2 Sat (%) 98 04/09/18 09:55 O2 Delivery Mode Room Air Allergies/Adverse Reactions: No Known Allergies Allergy (Verified 04/09/18 09:53) Home Medications: Medication Instructions Recorded Albuterol [Proventil Inhaler HFA 1 - 2 puffs IH Q4PRN PRN #1 mdi 04/02/18 (*)] Lisinopril 04/02/18 HYDROcodone/HOMATROPINE HYCODA 1 tsp PO Q4-6PRN PRN #120 ml 04/09/18 [Hycodan Syrup (*)] levOFLOXACIN [levAQUIN (*)] 500 mg PO DAILY #6 tab 04/09/18 predniSONE 50 mg PO DAILY #5 tablet 04/09/18 Medical Decision Making - Diagnostics Imaging Results: Imaging Impressions Chest X-Ray 04/09/18 10:04 Impression: Moderate perihilar bronchial colitis with more pronounced hypoventilatory features than on 04/02/2018, and interim development of a patchy right lower lobe infiltrate (pneumonia). Clinical correlation and follow-up to assure resolution are recommended. ED Course/Re-evaluation: Vital signs reviewed upon arrival in show tachypnea likely due to hyperventilation syndrome and discomfort Placed on cardiac monitor technician. No signs of hypoxia. Chest x-ray and medications ordered Patient given IM Ativan 1 mg, IM Toradol 60 mg, p.o. Decadron 10 mg and DuoNeb 1035: X-ray my read shows poor inspiratory effort; radiology question right lower lobe opacity 1040: Reassessed patient who now complains of back spasms. P.o. Percocet and another albuterol nebulizer ordered. Improving aeration noted. Given Levaquin for community-acquired pneumonia. Patient given albuterol inhaler in the emergency room as she"lost last 1."Also given steroid burst and cough syrup with codeine. Along with a work note per patient request. Patient is appropriate for outpatient treatment as no systemic signs/no hypoxia. Ambulating pulse ox 95%. This patient was seen under the supervision of my secondary supervising physician. I evaluated care for this patient independently. Discussed this patient with Dr. Campbell who did not see the patient. Differential Diagnosis: Shortness of breath including but not limited to pulmonary infectious process, COPD, asthma, pulmonary embolus and congestive heart failure. - Data Points Medications Given: Discontinued Medications Albuterol (Proventil Neb) 3 ml IH EDNOW ONE Stop: 04/09/18 10:40 Last Admin: 04/09/18 10:52 Dose: 3 ml Albuterol/Ipratropium (Duoneb) 3 ml IH EDNOW ONE Stop: 04/09/18 10:05 Last Admin: 04/09/18 10:10 Dose: 3 ml Dexamethasone (Decadron) 10 mg PO EDNOW ONE Stop: 04/09/18 10:05 Last Admin: 04/09/18 10:10 Dose: 10 mg Ketorolac Tromethamine (Toradol) 60 mg IM EDNOW ONE Stop: 04/09/18 10:05 Last Admin: 04/09/18 10:10 Dose: 60 mg Levofloxacin (Levaquin) 500 mg PO EDNOW ONE PRN Reason: Protocol Stop: 04/09/18 10:55 Last Admin: 04/09/18 11:18 Dose: 500 mg Lorazepam (Ativan Injection) 1 mg IM ONCE ONE Stop: 04/09/18 10:06 Last Admin: 04/09/18 10:10 Dose: 1 mg Oxycodone/Acetaminophen (Percocet 5/325) 1 tab PO EDNOW ONE Stop: 04/09/18 10:40 Last Admin: 04/09/18 10:52 Dose: 1 tab Departure - Departure Disposition: Home, Routine, Self-Care Clinical Impression: Influenza A with pneumonia Condition: Good Instructions: Albuterol (By breathing), Influenza (ED), Community Acquired Pneumonia (ED) Additional Instructions: Take antibiotic as directed until complete. Start 1st dose tomorrow. Take steroid burst as directed. Take 1st dose tomorrow. Take cough syrup as needed for severe cough. Consume a minimum of 8-10 glasses of water or electrolyte fluid replacement drinks that include Gatorade, Powerade, Pedialyte. Use albuterol inhaler 4-6 hours as needed for shortness of breath, wheezing. Please wash your hands frequently, cover your cough, and stay home until you are symptom free. Referrals: HUGO GRIFFITH [Primary Care Provider] - 3-4 days, if not improved Stand Alone Forms: Work Excuse Prescriptions: HYDROcodone/HOMATROPINE HYCODA [Hycodan Syrup (*)] 1 tsp PO Q4-6PRN PRN #120 ml PRN Reason: Cough, Severe levOFLOXACIN [levAQUIN (*)] 500 mg PO DAILY #6 tab predniSONE 50 mg PO DAILY #5 tablet
[2018-04-09] MEDS ORDERED: ALBUTEROL 3 ML DEYVIAL IH ONE (10:39)
[2018-04-09] MEDS ORDERED: OXYCODONE/APAP 5/325 TAB PO ONE (10:39)
[2018-04-09] MEDS ORDERED: ALBUTEROL INH PREPACK MDI TAKEHOME ONE ×2 (11:21→11:24)
[2018-04-09 11:26] VITALS: BP 135/70
== END 2018-04-09 11:26 | disposition home or self-care (01) ==
DX: J09.X1 Influenza due to identified novel influenza A virus with pneumonia (principal); F17.200 Nicotine dependence, unspecified, uncomplicated
CPT/HCPCS: J1885; J2060; J7613

== ENCOUNTER 2018-04-12 14:00 | Inpatient (IN) | payer MEDICAID ==
[2018-04-12 15:21] LABS: PLATELET COUNT 389 10^3/uL (150-400)
--- NOTE | 2018-04-12 15:30 | EDPHY ---
H & P Time Seen by Provider: 04/12/18 15:27 HPI/ROS: CHIEF COMPLAINT: Trouble breathing HISTORY OF PRESENT ILLNESS: 42-year-old wounds diagnosed with influenza on April 02 started on Tamiflu. Return on April 09 and was diagnosed with pneumonia and placed on steroids and Levaquin. She presents today feeling worse. Her right-sided chest pain which she has had for the past week is worse. Worse with coughing and deep breath. Associated with wheezing and feeling like she is retaining water. Symptoms severe and associated with not sleeping that much. She does feel more short of breath. Worse with exertion. REVIEW OF SYSTEMS: Eye: no change in vision ENT: no sore throat Cardiac: HPI no palpitations Pulmonary: HPI Abdomen: no vomiting, diarrhea, abdominal pain Musculoskeletal: no back pain or leg swelling Skin: no rash Neuro: no headache Constitutional: no fever : no urinary symptoms A comprehensive 10 point review of systems is otherwise negative aside from elements mentioned in the history of present illness. PAST MEDICAL HISTORY: History of diabetes in the past, diet controlled now. Asthma, fibromyalgia Social history: Tobacco smoker, but none in the past 3 days General Appearance: Alert and conversant, cooperative. Eyes: No scleral icterus. ENT, Mouth: Normal mucous membranes. Respiratory: Mild tachypnea and bilateral expiratory wheezes, right lower lung crackles, speaks in full sentences. Cardiovascular: Regular rate and rhythm. Tachycardic without murmur. Gastrointestinal: Abdomen is soft and non tender. Neurological: Alert, face symmetric, normal motor and sensory in extremities. Skin: Warm and dry, no rashes. Musculoskeletal: No peripheral edema. Psychiatric: Not agitated. Emergency Department course/MDM: DuoNeb and albuterol neb, repeat chest x-ray, IV Solu-Medrol discussed and consented. IV fluids and 1 oral Vicodin. More likely to be pleurisy or bronchitis than pulmonary embolism or ACS. Chest x-ray shows worsening right-sided pneumonia. Treated with IV ceftriaxone 1 g, azithromycin 500 mg, vancomycin 1 g IV for possible post influenza staphylococcal pneumonia. IV fluid bolus, lactate less than 2. Does not have severe sepsis or septic shock at this time. Smoking Status: Former smoker Constitutional: Initial Vital Signs Temperature (C) 36.6 C 04/12/18 14:05 Heart Rate 115 H 04/12/18 14:05 Respiratory Rate 24 H 04/12/18 14:05 Blood Pressure 175/115 H 04/12/18 14:05 O2 Sat (%) 93 04/12/18 14:05 O2 Delivery Mode Room Air Allergies/Adverse Reactions: No Known Allergies Allergy (Verified 04/12/18 14:04) Home Medications: Medication Instructions Recorded Albuterol [Proventil Inhaler HFA 1 - 2 puffs IH Q4PRN PRN #1 mdi 04/02/18 (*)] Lisinopril [Zestril 10 mg (*)] 10 mg PO DAILY 04/02/18 Fluticasone Hfa 220 Mcg [Flovent 1 puffs IH BID 04/12/18 220 MCG Hfa MDI (*)] Medical Decision Making - Diagnostics EKG Interpretation: 12-lead EKG interpreted by me; official reading is in computer system. My interpretation is sinus rhythm, left atrial enlargement. Imaging Results: Imaging Impressions Chest X-Ray 04/12/18 15:37 Impression: Worsening bilateral diffuse pneumonia, especially right lower lobe , with small right pleural effusion. Findings and recommendations discussed with Emergency Department physician, Hammad Moseley M.D., at 1655 hours, on April 12, 2018. Final report concurs with initial preliminary interpretation. Chest x-ray shows worsening right lower lung pneumonia. Imaging: I viewed and interpreted images myself Differential Diagnosis: Differential diagnosis considered for shortness of breath including but not limited to pulmonary infectious process, COPD, asthma, pulmonary embolus and congestive heart failure. Consult/Admit Bed Type: [place] [id number] Critical Care Time: Critical care time spent by me, Dr. Moseley, exclusively with the care of this patient was 30 minutes, exclusive of PA or DAY HABILITATION SUPERVISOR time and exclusive of separate procedures. The organ system at risk was pulmonary and I ordered supplemental oxygen, nebulizer medication, IV steroids, IV antibiotics, IV fluids to stabilize the patient and prevent worsening of the patient's condition. - Data Points Laboratory Results: Laboratory Results 04/12/18 15:05 04/12/18 15:05 04/12/18 04/12/18 04/12/18 15:05 15:05 15:05 WBC RBC Hgb Hct MCV MCH MCHC RDW Plt Count MPV Neut % (Auto) Lymph % (Auto) [place] % (Auto) Eos % (Auto) Baso % (Auto) Nucleat RBC Rel Count Absolute Neuts (auto) Absolute Lymphs (auto) Absolute Monos (auto) Absolute Eos (auto) Absolute Basos (auto) Absolute Nucleated RBC Immature Gran % Immature Gran # RBC/WBC/PLT Morphology Platelet Estimate Polychromasia Oval Macrocytes Echinocytes Sodium 136 mEq/L mEq/L (135-145) Potassium 3.7 mEq/L mEq/L (3.5-5.2) Chloride 106 mEq/L mEq/L (97-110) Carbon Dioxide 23 mEq/l mEq/l (22-31) Anion Gap 7 mEq/L mEq/L (6-14) BUN 14 mg/dL mg/dL (7-23) Creatinine 0.6 mg/dL mg/dL (0.6-1.0) Estimated GFR > 60 Glucose 250 mg/dL H mg/dL (70-100) Calcium 8.6 mg/dL mg/dL (8.5-10.4) Procalcitonin 0.27 ng/mL H ng/mL (0.02-0.10) Beta HCG, Qual NEGATIVE 04/12/18 15:05 WBC 21.18 10^3/uL H 10^3/uL (3.80-9.50) RBC 4.38 10^6/uL 10^6/uL (4.18-5.33) Hgb 12.9 g/dL g/dL (12.6-16.3) Hct 39.7 % % (38.0-47.0) MCV 90.6 fL fL (81.5-99.8) MCH 29.5 pg pg (27.9-34.1) MCHC 32.5 g/dL g/dL (32.4-36.7) RDW 14.5 % % (11.5-15.2) Plt Count 389 10^3/uL 10^3/uL (150-400) MPV 9.7 fL fL (8.7-11.7) Neut % (Auto) 89.4 % H % (39.3-74.2) Lymph % (Auto) 3.6 % L % (15.0-45.0) [place] % (Auto) 5.3 % % (4.5-13.0) Eos % (Auto) 0.0 % L % (0.6-7.6) Baso % (Auto) 0.2 % L % (0.3-1.7) Nucleat RBC Rel Count 0.0 % % (0.0-0.2) Absolute Neuts (auto) 18.93 10^3/uL H 10^3/uL (1.70-6.50) Absolute Lymphs (auto) 0.76 10^3/uL L 10^3/uL (1.00-3.00) Absolute Monos (auto) 1.12 10^3/uL H 10^3/uL (0.30-0.80) Absolute Eos (auto) 0.00 10^3/uL L 10^3/uL (0.03-0.40) Absolute Basos (auto) 0.04 10^3/uL 10^3/uL (0.02-0.10) Absolute Nucleated RBC 0.00 10^3/uL 10^3/uL (0-0.01) Immature Gran % 1.5 % H % (0.0-1.1) Immature Gran # 0.32 10^3/uL H 10^3/uL (0.00-0.10) RBC/WBC/PLT Morphology TNP Platelet Estimate ADEQUATE (ADEQ) Polychromasia 1+ H Oval Macrocytes 1+ H Echinocytes 1+ H Sodium Potassium Chloride Carbon Dioxide Anion Gap BUN Creatinine Estimated GFR Glucose Calcium Procalcitonin Beta HCG, Qual Medications Given: Acetaminophen (Tylenol) 650 mg PO Q4HRS PRN PRN Reason: Pain, Mild/Fever, Can Take PO Stop: 10/09/18 16:45 Last Admin: 04/12/18 19:38 Dose: 650 mg Albuterol/Ipratropium (Duoneb) 3 ml IH QID [facility] Stop: 10/09/18 20:59 Last Admin: 04/12/18 21:30 Dose: 3 ml Fluticasone Propionate (Flovent Hfa) 1 puffs IH BID [facility] Stop: 10/09/18 20:59 Last Admin: 04/12/18 21:41 Dose: Not Given Guaifenesin/Codeine Phosphate (Robitussin Ac) 10 ml PO Q6HRS PRN PRN Reason: Cough, Moderate Stop: 10/09/18 19:58 Last Admin: 04/12/18 20:35 Dose: 10 ml Methylprednisolone Sodium Succinate (Solu-Medrol) 60 mg IVP BID [facility] Stop: 10/09/18 20:59 Last Admin: 04/12/18 20:41 Dose: 60 mg Ondansetron HCl (Zofran) 4 mg IVP Q4HRS PRN PRN Reason: Nausea/Vomiting, Can't Take PO Stop: 10/09/18 16:45 Last Admin: 04/12/18 16:55 Dose: 4 mg Throat Lozenges (Cepacol Lozenge) 1 ea PO PRN PRN PRN Reason: Sore Throat Stop: 10/09/18 19:58 Last Admin: 04/12/18 20:35 Dose: 1 ea Discontinued Medications Hydrocodone Bitart/Acetaminophen ([place] 5/325) 1 tab PO EDNOW ONE Stop: 04/12/18 15:40 Last Admin: 04/12/18 15:50 Dose: 1 tab Albuterol (Proventil Neb) 3 ml IH EDNOW ONE Stop: 04/12/18 15:38 Last Admin: 04/12/18 15:51 Dose: 3 ml Albuterol/Ipratropium (Duoneb) 3 ml IH EDNOW ONE Stop: 04/12/18 15:38 Last Admin: 04/12/18 15:51 Dose: 3 ml Furosemide (Lasix Injection) 20 mg IVP ONCE ONE Stop: 04/12/18 18:28 Last Admin: 04/12/18 18:50 Dose: 20 mg Sodium Chloride (Ns) 1,000 mls @ 0 mls/hr IV ONCE ONE; Wide Open PRN Reason: Protocol Stop: 04/12/18 15:38 Last Admin: 04/12/18 15:50 Dose: 1,000 mls Ceftriaxone Sodium/Dextrose (Rocephin 1 Gm (Premix)) 50 mls @ 100 mls/hr IV EDNOW ONE PRN Reason: Protocol Stop: 04/12/18 16:27 Last Admin: 04/12/18 16:37 Dose: 50 mls Sodium Chloride (Ns) 2,100 mls @ 4,200 mls/hr 30 ml/kg infuse over 30 min ( 2100 ml) IV EDNOW ONE PRN Reason: Protocol Stop: 04/12/18 16:27 Last Admin: 04/12/18 16:11 Dose: 2,100 mls Vancomycin/Sodium Chloride (Vancomycin 1 Gm (Premix)) 250 mls @ 250 mls/hr IV EDNOW ONE PRN Reason: Protocol Stop: 04/12/18 16:58 Last Admin: 04/12/18 16:37 Dose: 250 mls Azithromycin 500 mg/ Sodium (Chloride) 255 mls @ 255 mls/hr IV EDNOW ONE PRN Reason: Protocol Stop: 04/12/18 17:29 Last Admin: 04/12/18 16:38 Dose: 255 mls Methylprednisolone Sodium Succinate (Solu-Medrol) 125 mg IVP EDNOW ONE Stop: 04/12/18 15:38 Last Admin: 04/12/18 15:51 Dose: 125 mg Departure - Departure Disposition: [facility] Acute Clinical Impression: Exacerbation of asthma Qualifiers: Asthma severity: moderate Asthma persistence: unspecified Qualified Code(s): J45.901 - Unspecified asthma with (acute) exacerbation Pneumonia Qualifiers: Pneumonia type: due to unspecified organism Laterality: bilateral Lung location : lower lobe of lung Qualified Code(s): J18.1 - Lobar pneumonia, unspecified organism Condition: Fair
[2018-04-12] MEDS ORDERED: NS 1,000 ML IV ONE (15:37)
[2018-04-12] MEDS ORDERED: ALBUTEROL 3 ML DEYVIAL IH ONE (15:37)
[2018-04-12] MEDS ORDERED: IPRATROPIUM/ALBUTEROL 3 ML DEYVIAL IH ONE (15:37)
[2018-04-12] MEDS ORDERED: methylPREDNISolone SOD SUCC 125 MG/2 ML VIAL IVP ONE (15:37)
[2018-04-12] MEDS ORDERED: HYDROCODONE/APAP 5/325 TAB PO ONE (15:39)
[2018-04-12] MEDS ORDERED: NS 2,100 ML IV ONE (15:58)
[2018-04-12] MEDS ORDERED: VANCOMYCIN HCL/NORMAL SALINE 250 ML IV ONE (15:59)
[2018-04-12] MEDS ORDERED: AZITHROMYCIN IV 500 MG in D5W 250 ML IV ONE (15:59)
--- NOTE | 2018-04-12 16:22 | CPEKG ---
Test Reason : OPEN Blood Pressure : / mmHG Vent. Rate : 087 BPM Atrial Rate : 086 BPM P-R Int : 151 ms QRS Dur : 105 ms QT Int : 351 ms P-R-T Axes : 054 -09 030 degrees QTc Int : 423 ms Sinus rhythm Probable left atrial enlargement Confirmed by Hammad Moseley ([id number]) on 04/12/2018 4:21:44 PM Referred By: Confirmed By:Hammad Moseley
[2018-04-12] MEDS ORDERED: AZITHROMYCIN IV 500 MG in NS 250 ML IV ONE (16:30)
[2018-04-12] MEDS ORDERED: ONDANSETRON DISINTEGRATING 4 MG TAB PO PRN (16:46)
[2018-04-12] MEDS ORDERED: ONDANSETRON 4 MG/2 ML VIAL IVP PRN (16:46)
[2018-04-12] MEDS ORDERED: ONDANSETRON 4 MG/2 ML VIAL ONE (16:52)
[2018-04-12] MEDS ORDERED: HYDROCODONE/APAP 5/325 TAB PO PRN (17:16)
--- NOTE | 2018-04-12 17:19 | PDGENHP ---
History and Physical - Chief Complaint Difficulty breathing - History of Present Illness This is a 42 y/o female with history of recent influenza presenting to the emergency room with difficulty breathing. She was seen on April 02 and diagnosed with influenza and started on Tamiflu. On April 09, she was diagnosed with pneumonia and started on steroids and Levaquin. She presents today with worsening right sided chest pain that was present on prior visit but per pt, has worsened. She feels as if she is retaining water although has no issues urinating normally. The chest pain is worse with deep breathing which causes a productive cough and with exertion. EKG SR and CXR worsening bilateral pneumonia with small right sided pleural effusion. Past Medical/Surgical History 1. Hypertension 2. Diabetes - diet controlled now. Recent A1c per pt was 7%. Her PCP will decide whether she may stay off Metformin at their next visit. She has been off Metformin for 3 years. 3. Asthma 4. Fibromyalgia 5. Carpal Tunnel Syndrome 6. Kidney stones 7. Tubal ligation 8. Ovarian cysts Social 1. Reports homelessness for the last 3 months leading up to her influenza diagnosis. She is now living with her significant other and his father 2. Former smoker. She reports going "cold turkey" 2 weeks ago because of her current condition and the lack of improvement. She typically smoke 1/2 pack or more of cigarettes per day. She denies alcohol use and once again, went "cold turkey" because of her current condition. Denies illicit drug use. History Information - Allergies/Home Medication List Allergies/Adverse Reactions: No Known Allergies Allergy (Verified 04/12/18 14:04) Home Medications: Lisinopril [Zestril 10 mg (*)] 10 mg PO DAILY 04/02/18 [Last Taken Unknown] Fluticasone Hfa 220 Mcg [Flovent 220 MCG Hfa MDI (*)] 1 puffs IH BID 04/12/18 [ Last Taken Unknown] I have personally reviewed and updated: family history, medical history, social history, surgical history Past Medical History: See HPI list - Surgical History Additional surgical history: See HPI list - Family History Additional family history: Alcoholism - Social History Smoking Status: Former smoker Alcohol Use: None Drug Use: None Review of Systems Review of Systems: ROS: 10pt was reviewed & negative except for what was stated in HPI & below Constitutional: Reports: malaise, recent illness EENMT: Reports: sore throat Cardiac: Reports: chest pain Respiratory: Reports: cough, shortness of breath, wheezing Gastrointestinal: Reports: abdominal pain, nausea Genitourinary: Reports: no symptoms Muscolosketal: Reports: back pain Skin: Reports: no symptoms Neurological: Reports: anxiety Hematologic/Lymphatic: Reports: no symptoms Immunologic/Allergy: Reports: no symptoms Physical Exam Physical Exam: Lab data and imaging reviewed Temp Pulse Resp BP Pulse Ox 36.7 C 100 19 161/106 H 93 04/12/18 17:13 04/12/18 17:13 04/12/18 17:13 04/12/18 17:13 04/12/18 17:13 Constitutional: appears nourished, uncomfortable, other (Moderately anxious in appearance by quick speech and fidgeting with arms and legs) Ears, Nose, Mouth, Throat: moist mucous membranes, hearing normal, ears appear normal, no oral mucosal ulcers Cardiovascular: regular rate and rhythym, no murmur, rub, or gallop, tachycardia Peripheral Pulses: 2+: dorsalis-pedis (R) (Radial 2+), dorsalis-pedis (L) ( Radial 2+) Respiratory: expiratory wheeze Gastrointestinal: tenderness, guarding (RLQ), other (Hypoactive BS) Genitourinary: no bladder fullness, no bladder tenderness Skin: warm, normal color, no rashes or abrasions, no fluctuance, no induration, No mottled Musculoskeletal: full muscle strength, no muscle tenderness, normal joint ROM, no joint effusions Neurologic: AAOx3, sensation intact bilaterally, CN II-XII Intact Psychiatric: interacting appropriately, not encephalopathic, thought process linear, anxious Lymph, Heme, Immunologic: no cervical LAD, no supraclavicular LAD Lab Data & Imaging Review 04/12/18 15:05 04/12/18 15:05 WBC 21.18 10^3/uL (3.80-9.50) H 04/12/18 15:05 RBC 4.38 10^6/uL (4.18-5.33) 04/12/18 15:05 Hgb 12.9 g/dL (12.6-16.3) 04/12/18 15:05 Hct 39.7 % (38.0-47.0) 04/12/18 15:05 MCV 90.6 fL (81.5-99.8) 04/12/18 15:05 MCH 29.5 pg (27.9-34.1) 04/12/18 15:05 MCHC 32.5 g/dL (32.4-36.7) 04/12/18 15:05 RDW 14.5 % (11.5-15.2) 04/12/18 15:05 Plt Count 389 10^3/uL (150-400) 04/12/18 15:05 MPV 9.7 fL (8.7-11.7) 04/12/18 15:05 Neut % (Auto) 89.4 % (39.3-74.2) H 04/12/18 15:05 Lymph % (Auto) 3.6 % (15.0-45.0) L 04/12/18 15:05 [place] % (Auto) 5.3 % (4.5-13.0) 04/12/18 15:05 Eos % (Auto) 0.0 % (0.6-7.6) L 04/12/18 15:05 Baso % (Auto) 0.2 % (0.3-1.7) L 04/12/18 15:05 Nucleat RBC Rel Count 0.0 % (0.0-0.2) 04/12/18 15:05 Absolute Neuts (auto) 18.93 10^3/uL (1.70-6.50) H 04/12/18 15:05 Absolute Lymphs (auto) 0.76 10^3/uL (1.00-3.00) L 04/12/18 15:05 Absolute Monos (auto) 1.12 10^3/uL (0.30-0.80) H 04/12/18 15:05 Absolute Eos (auto) 0.00 10^3/uL (0.03-0.40) L 04/12/18 15:05 Absolute Basos (auto) 0.04 10^3/uL (0.02-0.10) 04/12/18 15:05 Absolute Nucleated RBC 0.00 10^3/uL (0-0.01) 04/12/18 15:05 Immature Gran % 1.5 % (0.0-1.1) H 04/12/18 15:05 Immature Gran # 0.32 10^3/uL (0.00-0.10) H 04/12/18 15:05 RBC/WBC/PLT Morphology TNP 04/12/18 15:05 Platelet Estimate ADEQUATE (ADEQ) 04/12/18 15:05 Polychromasia 1+ H 04/12/18 15:05 Oval Macrocytes 1+ H 04/12/18 15:05 Echinocytes 1+ H 04/12/18 15:05 VBG Lactic Acid 1.3 mmol/L (0.7-2.1) 04/12/18 16:10 Sodium 136 mEq/L (135-145) 04/12/18 15:05 Potassium 3.7 mEq/L (3.5-5.2) 04/12/18 15:05 Chloride 106 mEq/L (97-110) 04/12/18 15:05 Carbon Dioxide 23 mEq/l (22-31) 04/12/18 15:05 Anion Gap 7 mEq/L (6-14) 04/12/18 15:05 BUN 14 mg/dL (7-23) 04/12/18 15:05 Creatinine 0.6 mg/dL (0.6-1.0) 04/12/18 15:05 Estimated GFR > 60 04/12/18 15:05 Glucose 250 mg/dL (70-100) H 04/12/18 15:05 Calcium 8.6 mg/dL (8.5-10.4) 04/12/18 15:05 Beta HCG, Qual NEGATIVE 04/12/18 15:05 Assessment & Plan Plan: This is a 42 y/o female with history of recent influenza and now presenting with bilateral pneumonia. EKG perform SR with possible left atrial enlargement and CXR with worsening bilateral pneumonia especially right lower lobe, with right small pleural effusion 1. Bilateral Pneumonia w/right sided pleural effusion: initially presented to the emergency room tachycardic and tachypneic, triggering sepsis protocol and received IVF boluses and lactic acid pulled. Rocephin, Azithromycin, and vancomycin were initiated. Lactic acid results were 1.3. Hemodynamically stable. She does not meet sepsis criteria now, however we will continue to monitor her overnight for significant changes. Leukocytosis (21.18). Low possibility of right sided chest pain be related to ACS or cardiac in nature considering right lower lobe is being affected heavily by pneumonia, additional experiencing small effusion. -Procalcitonin elevated (0.27) -Continue Azithromycin and Rocephin IVPB -Lasix ONCE -Rechecking respiratory panel PCR -Blood cultures pending 2. Anxiety: Ativan PRN 3. Asthma -Duonebs -IV steroids 4. Hypertension: stable for now. Holding lisinopril until tomorrow. Will want to monitor BP overnight to ensure no hypotensive events occur. 5. Diabetes: this is diet-controlled. Continue to monitor. CBC/BMP for tomorrow 6. Abdominal pain: c/o RLQ pain, guarding. Negative Avery's sign, Rovsing's sign. Cramping sensation. -Abdominal US to r/o appendicitis 7. Tobacco cessation: reportedly went "cold turkey" and will never smoke again. She refused any additional information or education. 8. EtOH cessation: see tobacco cessation Diet: Carb-controlled Code: Full VTE ppx: SCDs Dispo: Admit to inpatient
[2018-04-12] MEDS ORDERED: FUROSEMIDE 20 MG/2 ML VIAL IVP ONE (18:27)
[2018-04-12] MEDS ORDERED: ALBUTEROL 3 ML DEYVIAL IH PRN (18:29)
--- NOTE | 2018-04-12 18:37 | HOSPPROG ---
Hospitalist Progress Note Assessment/Plan: pt seen in conjunction with WAGON DRILLER. 42 yo female admitted with SOB, cough, increased RR, tachycardia. afebrile. Normal BP. Recently had Influenza per report Meet Sepsis criteria and given significant IVF in the ER Started on Broad spectrum abx: Rocephin, Azithro, Vanco Started on Steroids On RA RR has decreased CXR c/w bilateral pneumonia Leukocytosis present #Post viral pneumonia #Reactive Airway disease exacerbation #Tachycardia #Hx of HTN #Hx of ETOH use but reports quit 2 weeks ago. #Query Anxiety d/o Plan: Although she met sepsis criteria I dont think she has Sepsis. She also reports some leg swelling although I do not see any. Will cont Rocephin and Azithromycin. No need for Vanco cont with IV steroids and bronchodilators We will hold off on CTA given e/o pneumonia and RAD Stop IVF. Give 1 dose of Lasix Repeat Viral PCR Hold Lisinopril today but will likely need tomorrow Ativan PRN SCD's Agree with WAGON DRILLER's A/P per her H&P Subjective: SOB Objective: Vital Signs Temp Pulse Resp BP Pulse Ox 36.9 C 93 16 148/98 H 94 04/12/18 18:06 04/12/18 18:06 04/12/18 18:06 04/12/18 18:06 04/12/18 18:06 04/11/18 04/12/18 04/13/18 05:59 05:59 05:59 Intake Total 2100 Balance 2100 - Physical Exam Constitutional: chronically ill appearing Eyes: PERRL, EOMI Ears, Nose, Mouth, Throat: moist mucous membranes, hearing normal Cardiovascular: regular rate and rhythym, No edema Respiratory: no respiratory distress, no rales or rhonchi, reduced air movement , expiratory wheeze Skin: warm Neurologic: AAOx3 Psychiatric: interacting appropriately, not anxious, not encephalopathic Lymph, Heme, Immunologic: No petechiae ICD10 Worksheet Patient Problems: Problems Problem Status Onset Pneumonia Acute - ICD10 Problem Qualifiers (1) Pneumonia
[2018-04-12] MEDS: ACETAMINOPHEN 325 MG TAB PO PRN (19:38)
[2018-04-12] MEDS: guaiFENesin/CODEINE PHOS 10 ML UDCUP PO PRN (20:35)
[2018-04-12] MEDS: CEPACOL LOZENGE PO PRN ×2 (20:35→23:32)
[2018-04-12] MEDS: methylPREDNISolone SOD SUCC 125 MG/2 ML VIAL IVP SCH (20:41)
[2018-04-12] MEDS: IPRATROPIUM/ALBUTEROL 3 ML DEYVIAL IH SCH (21:30)
[2018-04-12] MEDS: FLUTICASONE HFA 220 MCG MDI IH SCH ×2 (21:41→22:53)
[2018-04-12] MEDS: oxyCODONE IR 5 MG TAB PO PRN (22:51)
[2018-04-12] MEDS: LORazepam 1 MG TAB PO PRN (23:30)
[2018-04-13] MEDS: guaiFENesin/CODEINE PHOS 10 ML UDCUP PO PRN ×4 (02:27→23:35)
[2018-04-13] MEDS: CEPACOL LOZENGE PO PRN ×3 (02:28→23:35)
[2018-04-13] MEDS: oxyCODONE IR 5 MG TAB PO PRN ×5 (03:15→22:06)
[2018-04-13 04:59] LABS: PLATELET COUNT 346 10^3/uL (150-400)
[2018-04-13] MEDS: IPRATROPIUM/ALBUTEROL 3 ML DEYVIAL IH SCH ×4 (05:53→21:37)
--- NOTE | 2018-04-13 07:04 | PDMN ---
Medical Necessity Medical necessity: Pt meets INPT criteria per MD as of 04/12/18 and MCG [id number] Pneumonia, Community Acquired (est. LOS >2 MN for eval/tx of bilateral pneumonia with right sided pleural effusion, tachycardia, tachypnea, abd pain; comorbid asthma, htn, diabetes).
[2018-04-13] MEDS: LORazepam 1 MG TAB PO PRN ×2 (07:25→22:06)
[2018-04-13] MEDS ORDERED: AZITHROMYCIN 250 MG TAB PO SCH (09:00)
[2018-04-13] MEDS ORDERED: LISINOPRIL 10 MG TAB PO SCH (09:00)
[2018-04-13] MEDS: FLUTICASONE HFA 220 MCG MDI IH SCH ×2 (09:38→21:36)
[2018-04-13] MEDS: methylPREDNISolone SOD SUCC 125 MG/2 ML VIAL IVP SCH ×2 (10:43→20:13)
[2018-04-13] MEDS ORDERED: LISINOPRIL 40 MG TAB PO SCH (11:30)
--- NOTE | 2018-04-13 12:39 | ASMTCMCOM ---
CM Note CM Note Notes: Reviewed chart. Pt admitted for pneumonia. History includes HTN, diabetes, asthma, fibromyalgia, carpal tunnel, kidney stones and anxiety. Pt has a son. She has had several recent Emergency Room visits. Per MD notes, the pt was previously homeless, but has been living with her partner and his family. Discharge needs remain unclear at this time. Anticipate pt will likely discharge independently when medically stable. CM will continue to follow for any potential needs. Discharge Plan: Likely independent Date Signed: 04/13/2018 12:39 PM Electronically Signed By:Mandi Carlin RN
[2018-04-13] MEDS ORDERED: GADOBUTROL 10 ML VIAL IVP ONE (16:08)
[2018-04-13] MEDS ORDERED: IOPAMIDOL (ISOVUE 370) 100 ML BTL IV ONE (16:24)
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
[2018-04-13] MEDS ORDERED: BISACODYL 10 MG SUPP PR PRN (19:59)
[2018-04-13] MEDS: LIDOCAINE 4%/MENTHOL 1% PATCH TD SCH (20:12)
[2018-04-13] MEDS: SENNOSIDES/DOCUSATE SODIUM TAB PO SCH (20:13)
[2018-04-14] MEDS: oxyCODONE IR 5 MG TAB PO PRN ×6 (01:50→21:36)
[2018-04-14] MEDS: LORazepam 1 MG TAB PO PRN ×4 (03:19→22:16)
[2018-04-14] MEDS: KETOROLAC 30 MG/1 ML SDV IVP PRN (03:19)
[2018-04-14] MEDS: POLYETHYLENE GLYCOL 3350 17 GM PKT PO PRN (03:52)
[2018-04-14 05:38] LABS: PLATELET COUNT 366 10^3/uL (150-400)
[2018-04-14] MEDS: IPRATROPIUM/ALBUTEROL 3 ML DEYVIAL IH SCH ×4 (05:53→20:55)
[2018-04-14] MEDS: guaiFENesin/CODEINE PHOS 10 ML UDCUP PO PRN ×2 (07:34→20:51)
[2018-04-14] MEDS: MAGNESIUM HYDROXIDE 30 ML UDCUP PO PRN (07:34)
[2018-04-14] MEDS: AZITHROMYCIN 250 MG TAB PO SCH (07:59)
[2018-04-14] MEDS: LISINOPRIL 40 MG TAB PO SCH (08:00)
[2018-04-14] MEDS: methylPREDNISolone SOD SUCC 125 MG/2 ML VIAL IVP SCH ×2 (08:00→20:42)
[2018-04-14] MEDS: FLUTICASONE HFA 220 MCG MDI IH SCH ×2 (08:08→21:04)
[2018-04-14] MEDS: PATCH REMOVAL 1 EA PATCH TD SCH (08:14)
[2018-04-14] MEDS ORDERED: LIDOCAINE 1% 300 MG/30 ML SDV ONE (10:07)
[2018-04-14] MEDS: SENNOSIDES/DOCUSATE SODIUM TAB PO SCH ×2 (13:04→20:42)
[2018-04-14] MEDS ORDERED: GABAPENTIN 300 MG CAP PO ONE (14:00)
[2018-04-14] MEDS: CEPACOL LOZENGE PO PRN (14:52)
[2018-04-14] MEDS: HYDROmorphONE/DILAUDID 1 MG/ML INJ IVP PRN (16:17)
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
[2018-04-14] MEDS: ACETAMINOPHEN 325 MG TAB PO PRN (18:12)
[2018-04-14] MEDS: LIDOCAINE 4%/MENTHOL 1% PATCH TD SCH (20:43)
[2018-04-15] MEDS: oxyCODONE IR 5 MG TAB PO PRN ×4 (00:58→20:07)
[2018-04-15] MEDS: LORazepam 1 MG TAB PO PRN ×3 (03:04→20:07)
[2018-04-15] MEDS: IPRATROPIUM/ALBUTEROL 3 ML DEYVIAL IH SCH ×4 (05:14→20:43)
[2018-04-15] MEDS: HYDROmorphONE/DILAUDID 1 MG/ML INJ IVP PRN (06:39)
[2018-04-15 07:38] LABS: PLATELET COUNT 409 10^3/uL (150-400)
[2018-04-15] MEDS: KETOROLAC 30 MG/1 ML SDV IVP PRN (09:05)
[2018-04-15] MEDS: methylPREDNISolone SOD SUCC 125 MG/2 ML VIAL IVP SCH (09:05)
[2018-04-15] MEDS: SENNOSIDES/DOCUSATE SODIUM TAB PO SCH ×2 (09:06→20:06)
[2018-04-15] MEDS: LISINOPRIL 40 MG TAB PO SCH (09:06)
[2018-04-15] MEDS: AZITHROMYCIN 250 MG TAB PO SCH (09:06)
[2018-04-15] MEDS: LACTULOSE 20 GM/30 ML UDCUP PO PRN ×2 (09:06→20:06)
[2018-04-15] MEDS: GABAPENTIN 300 MG CAP PO SCH ×2 (09:06→20:07)
[2018-04-15] MEDS: PATCH REMOVAL 1 EA PATCH TD SCH (09:49)
[2018-04-15 09:55] LABS: HIV TYPE 1 AND 2 NEGATIVE (NEGATIVE)
[2018-04-15] MEDS: FLUTICASONE HFA 220 MCG MDI IH SCH ×2 (10:20→20:43)
[2018-04-15] MEDS ORDERED: NS 1,000 ML IV SCH ×2 (11:45→16:45)
[2018-04-15] MEDS: ACETAMINOPHEN 325 MG TAB PO PRN (13:16)
[2018-04-15] MEDS: guaiFENesin/CODEINE PHOS 10 ML UDCUP PO PRN (13:17)
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
[2018-04-15] MEDS ORDERED: IOPAMIDOL (ISOVUE-M 300) 15 ML VIAL ONE (16:29)
[2018-04-15] MEDS ORDERED: TRIAMCINOLONE ACETONIDE 200 MG/5 ML MDV IM ONE (16:29)
[2018-04-15] MEDS ORDERED: fentaNYL 100 MCG/2 ML INJ ONE (16:44)
[2018-04-15] MEDS ORDERED: NALOXONE HCL 0.4 MG/ML INJ ONE (16:44)
[2018-04-15] MEDS ORDERED: NALOXONE HCL 0.4 MG/ML INJ IVP PRN (16:44)
[2018-04-15] MEDS ORDERED: fentaNYL 100 MCG/2 ML INJ IVP PRN (16:44)
[2018-04-15] MEDS: CEPACOL LOZENGE PO PRN (20:06)
[2018-04-15] MEDS: MELATONIN 3 MG TAB PO SCH (20:07)
[2018-04-15] MEDS: LIDOCAINE 4%/MENTHOL 1% PATCH TD SCH (20:08)
[2018-04-16] MEDS: oxyCODONE IR 5 MG TAB PO PRN ×6 (00:15→19:43)
[2018-04-16] MEDS: guaiFENesin/CODEINE PHOS 10 ML UDCUP PO PRN ×2 (00:18→23:07)
[2018-04-16] MEDS: LORazepam 1 MG TAB PO PRN ×3 (04:42→23:07)
[2018-04-16] MEDS: IPRATROPIUM/ALBUTEROL 3 ML DEYVIAL IH SCH ×2 (05:08→10:38)
[2018-04-16 06:35] LABS: PLATELET COUNT 477 10^3/uL (150-400)
[2018-04-16] MEDS: AZITHROMYCIN 250 MG TAB PO SCH (08:33)
[2018-04-16] MEDS: predniSONE 20 MG TAB PO SCH (08:33)
[2018-04-16] MEDS: LISINOPRIL 40 MG TAB PO SCH (08:33)
[2018-04-16] MEDS: GABAPENTIN 300 MG CAP PO SCH ×2 (08:33→20:02)
[2018-04-16] MEDS: SENNOSIDES/DOCUSATE SODIUM TAB PO SCH ×2 (08:41→20:02)
[2018-04-16] MEDS: PATCH REMOVAL 1 EA PATCH TD SCH (08:57)
[2018-04-16] MEDS: HYDROmorphONE/DILAUDID 1 MG/ML INJ IVP PRN (09:47)
[2018-04-16] MEDS: FLUTICASONE HFA 220 MCG MDI IH SCH ×2 (10:36→21:49)
--- NOTE | 2018-04-16 11:05 | ASMTCMCOM ---
CM Note CM Note Notes: Pts case discussed w/ Dr. Miranda. Pts pain is not well controlled at this point. Pt will most likely d/c independent to boyfriend's familys home when medically stable. No needs at this time. CM available for changes. Plan: Independent Date Signed: 04/16/2018 11:04 AM Electronically Signed By:JOSH Frost
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
[2018-04-16] MEDS: MAGNESIUM HYDROXIDE 30 ML UDCUP PO PRN (19:02)
[2018-04-16] MEDS: MELATONIN 3 MG TAB PO SCH (20:02)
[2018-04-16] MEDS: LIDOCAINE 4%/MENTHOL 1% PATCH TD SCH (20:03)
[2018-04-16] MEDS: IPRATROPIUM/ALBUTEROL 3 ML DEYVIAL IH PRN (21:48)
[2018-04-17] MEDS: oxyCODONE IR 5 MG TAB PO PRN ×5 (03:27→20:40)
[2018-04-17] MEDS: AZITHROMYCIN 250 MG TAB PO SCH (08:12)
[2018-04-17] MEDS: SENNOSIDES/DOCUSATE SODIUM TAB PO SCH ×2 (08:12→20:40)
[2018-04-17] MEDS: GABAPENTIN 300 MG CAP PO SCH ×2 (08:13→20:40)
[2018-04-17] MEDS: predniSONE 20 MG TAB PO SCH (08:13)
[2018-04-17] MEDS: LISINOPRIL 40 MG TAB PO SCH (08:14)
[2018-04-17] MEDS: PATCH REMOVAL 1 EA PATCH TD SCH ×2 (08:19→20:44)
[2018-04-17] MEDS: LIDOCAINE 4%/MENTHOL 1% PATCH TD SCH (08:23)
[2018-04-17] MEDS: LORazepam 1 MG TAB PO PRN ×3 (08:51→20:40)
[2018-04-17] MEDS: FLUTICASONE HFA 220 MCG MDI IH SCH ×2 (08:58→20:21)
[2018-04-17] MEDS: IPRATROPIUM/ALBUTEROL 3 ML DEYVIAL IH PRN (08:58)
[2018-04-17] MEDS ORDERED: FUROSEMIDE 20 MG TAB PO ONE (11:07)
[2018-04-17] MEDS: KETOROLAC 30 MG/1 ML SDV IVP PRN ×2 (11:27→17:53)
--- NOTE | 2018-04-17 13:12 | ASMTCMCOM ---
CM Note CM Note Notes: Per Dr Miranda, d/c likely tomorrow. D/C continues to be to bf's family's home. No CM needs identified; CM will follow for changes. D/C Plan: Independent Date Signed: 04/17/2018 01:12 PM Electronically Signed By:Ladonna Thomas
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
[2018-04-17] MEDS: POLYETHYLENE GLYCOL 3350 17 GM PKT PO PRN (16:28)
[2018-04-17] MEDS: MELATONIN 3 MG TAB PO SCH (20:40)
[2018-04-17] MEDS: guaiFENesin/CODEINE PHOS 10 ML UDCUP PO PRN (20:48)
[2018-04-18] MEDS: KETOROLAC 30 MG/1 ML SDV IVP PRN (00:05)
[2018-04-18] MEDS: oxyCODONE IR 5 MG TAB PO PRN ×5 (03:09→21:31)
[2018-04-18] MEDS: LORazepam 1 MG TAB PO PRN ×5 (03:09→21:32)
[2018-04-18] MEDS: MAGNESIUM HYDROXIDE 30 ML UDCUP PO PRN (04:41)
[2018-04-18 05:10] LABS: PLATELET COUNT 490 10^3/uL (150-400)
[2018-04-18] MEDS: AZITHROMYCIN 250 MG TAB PO SCH (08:00)
[2018-04-18] MEDS: GABAPENTIN 300 MG CAP PO SCH ×3 (08:00→21:31)
[2018-04-18] MEDS: LIDOCAINE 4%/MENTHOL 1% PATCH TD SCH (08:00)
[2018-04-18] MEDS: SENNOSIDES/DOCUSATE SODIUM TAB PO SCH ×2 (08:00→21:32)
[2018-04-18] MEDS: LISINOPRIL 40 MG TAB PO SCH (08:04)
[2018-04-18] MEDS: FLUTICASONE HFA 220 MCG MDI IH SCH ×2 (09:38→19:53)
[2018-04-18] MEDS: LACTULOSE 20 GM/30 ML UDCUP PO PRN (10:06)
[2018-04-18] MEDS ORDERED: GABAPENTIN 300 MG CAP PO SCH (10:49)
[2018-04-18] MEDS ORDERED: FUROSEMIDE 20 MG TAB PO ONE (10:50)
[2018-04-18] MEDS ORDERED: HYDROCHLOROTHIAZIDE 25 MG TAB PO SCH (11:00)
[2018-04-18] MEDS: PATCH REMOVAL 1 EA PATCH TD SCH (11:01)
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
[2018-04-18] MEDS: MELATONIN 3 MG TAB PO SCH (21:31)
[2018-04-18] MEDS: guaiFENesin/CODEINE PHOS 10 ML UDCUP PO PRN (23:51)
[2018-04-18] MEDS: ACETAMINOPHEN 325 MG TAB PO PRN (23:52)
[2018-04-19] MEDS: oxyCODONE IR 5 MG TAB PO PRN ×5 (02:24→20:27)
[2018-04-19] MEDS: LORazepam 1 MG TAB PO PRN ×5 (02:24→21:23)
[2018-04-19] MEDS: SENNOSIDES/DOCUSATE SODIUM TAB PO SCH ×2 (07:43→21:20)
[2018-04-19] MEDS: LISINOPRIL/HCTZ 20/12.5MG 1 EA TAB PO SCH (07:44)
[2018-04-19] MEDS: LIDOCAINE 4%/MENTHOL 1% PATCH TD SCH (07:45)
[2018-04-19] MEDS: GABAPENTIN 300 MG CAP PO SCH ×3 (07:45→21:20)
[2018-04-19] MEDS: FLUTICASONE HFA 220 MCG MDI IH SCH ×2 (08:17→20:06)
[2018-04-19] MEDS: IPRATROPIUM/ALBUTEROL 3 ML DEYVIAL IH PRN (08:18)
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
--- NOTE | 2018-04-19 12:56 | ASMTCMCOM ---
CM Note CM Note Notes: Patient continues to have elevated WBC and back/leg pain. Hospital medicine and NS following. Discharge plan continues to be home (with boyfriend) with no needs. CM available if this changes. Date Signed: 04/19/2018 12:55 PM Electronically Signed By:Maxine Lizarraga RN
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
[2018-04-19] MEDS: CYCLOBENZAPRINE 10 MG TAB PO PRN (21:20)
[2018-04-19] MEDS: guaiFENesin/CODEINE PHOS 10 ML UDCUP PO PRN (21:20)
[2018-04-19] MEDS: MELATONIN 3 MG TAB PO SCH (21:21)
[2018-04-19] MEDS: PATCH REMOVAL 1 EA PATCH TD SCH (21:24)
[2018-04-20] MEDS: oxyCODONE IR 5 MG TAB PO PRN ×3 (01:30→13:49)
[2018-04-20] MEDS: LORazepam 1 MG TAB PO PRN ×3 (01:34→12:12)
[2018-04-20 04:58] LABS: PLATELET COUNT 562 10^3/uL (150-400)
[2018-04-20] MEDS: ACETAMINOPHEN 325 MG TAB PO PRN ×2 (04:58→16:29)
[2018-04-20] MEDS: CYCLOBENZAPRINE 10 MG TAB PO PRN ×2 (07:17→13:49)
[2018-04-20] MEDS: SENNOSIDES/DOCUSATE SODIUM TAB PO SCH (07:32)
[2018-04-20] MEDS: GABAPENTIN 300 MG CAP PO SCH ×2 (07:32→16:29)
[2018-04-20] MEDS: LISINOPRIL/HCTZ 20/12.5MG 1 EA TAB PO SCH (07:34)
[2018-04-20] MEDS: LIDOCAINE 4%/MENTHOL 1% PATCH TD SCH (07:35)
[2018-04-20 07:37] VITALS: BP 117/90
[2018-04-20] MEDS: FLUTICASONE HFA 220 MCG MDI IH SCH (08:59)
[2018-04-20] MEDS ORDERED: GADOBUTROL 10 ML VIAL IVP ONE (12:04)
--- NOTE | 2018-04-20 12:06 | SOAPPROG ---
SOAP Progress Note Assessment/Plan: Assessment: Assessment/Plan: 42y/o female with low back pain,right leg pain s/p IR injection on Sunday with improvement of low back pain. No change in leg -Discussed with patient course of injections/max therapeutic timing. She is walking around room and bending over easily. -She will undergo lumbar MRI w/wo today per my discussion with Dr. Faulkner given her elevated WBC and abnormal ESR and CRP to re evaluate for infectious process. Recommended she follow up with with Dr. Rhoades/Dr. Mccarty in a 2-3 weeks as an outpatient to discuss full effect of injection and if surgical intervention is indicated. -Continue to optimize pain management, discharge planning per medicine -PT/OT as tolerated -Please notify NS with any change in neuro/motor exam Subjective: Walking around room and bending over to pick things up off of the floor. States her left leg has ongoing decreased sensation and discussed the SINTIA would not improve that issue. She says her back feels better. Objective: NAD A&Ox3 MAEx4 5/5 and equal in BUE and BLE. Left PF weakness when heel standing. Sensation intact. Plan: 04/20/18 12:03 Objective: Vital Signs Temp Pulse Resp BP Pulse Ox 36.9 C 98 14 117/90 H 95 04/20/18 07:49 04/20/18 09:00 04/20/18 09:00 04/20/18 07:49 04/20/18 09:00 Microbiology 04/14/18 11:48 Gram Stain - Final Thoracic Fluid - Aspirate Laboratory Results 04/20/18 04:36 04/20/18 04:36 04/19/18 04/20/18 04/21/18 05:59 05:59 05:59 Intake Total 100 Balance 100 ICD10 Worksheet Patient Problems: Problems Problem Status Onset Exacerbation of asthma Acute Pneumonia Acute
[2018-04-20] MEDS: LACTULOSE 20 GM/30 ML UDCUP PO PRN (13:50)
--- NOTE | 2018-04-20 17:42 | ASDISCHSUM ---
Discharge Information Plan Status:Home with No Needs Medically Cleared to Leave:04/19/2018 Discharge Date:04/20/2018 04:31 PM CM D/C Disposition:Home, Routine, Self-Care ADT D/C Disposition:Home, Routine, Self-Care Projected Discharge Date:04/20/2018 04:31 PM Transportation at D/C:Friend Discharge Delay Reason: Follow-Up Date:04/20/2018 04:31 PM Discharge Slot: Final Diagnosis:Pneumonia Placement Information Patient Contact Information Contact Name:INDIGORODRIGUE Relationship:Other Address:[address] [place] [address] [address] Hand City:[place] Alternate Phone: State/Zip Code:[place] [address] Email: Financial Information Financial Class:Medicaid Primary Plan Desc:MEDICAID HE[employer] FIRST [place] Primary Plan Number:[id number] Secondary Plan Desc: Secondary Plan Number: Assessment Information LACE LACE Length of stay for Answers: 7-13 days current admission Acuity / Level of Answers: Yes Care: Did the patient have an inpatient admission? Comorbidities - select Answers: Chronic pulmonary disease all that apply Diabetes (uncontrolled or controlled) Other Notes: HTN, fibromyalgia, hx kidney stones # of Emergency department Answers: 3-4 visits in the last 6 months Social determinants Answers: Mental health diagnosis (anxiety, depression, pers onality disorders, etc.) Score: 18 Date Signed: 04/20/2018 05:41 PM Electronically Signed By:Luana Pradhan [facility] CM Progress Note CM Note CM Note Notes: Reviewed chart. Pt admitted for pneumonia. History includes HTN, diabetes, asthma, fibromyalgia, carpal tunnel, kidney stones and anxiety. Pt has a son. She has had several recent Emergency Room visits. Per MD notes, the pt was previously homeless, but has been living with her partner and his family. Discharge needs remain unclear at this time. Anticipate pt will likely discharge independently when medically stable. CM will continue to follow for any potential needs. Discharge Plan: Likely independent Date Signed: 04/13/2018 12:39 PM Electronically Signed By:Mandi Carlin RN [facility] CM Progress Note CM Note CM Note Notes: Pts case discussed w/ Dr. Miranad. Pts pain is not well controlled at this point. Pt will most likely d/c independent to boyfriend's familys home when medically stable. No needs at this time. CM available for changes. Plan: Independent Date Signed: 04/16/2018 11:04 AM Electronically Signed By:JOSH Frost [facility] CM Progress Note CM Note CM Note Notes: Per Dr Miranda, d/c likely tomorrow. D/C continues to be to bf's family's home. No CM needs identified; CM will follow for changes. D/C Plan: Independent Date Signed: 04/17/2018 01:12 PM Electronically Signed By:Ladonna Thomas [facility] CM Progress Note CM Note CM Note Notes: Patient continues to have elevated WBC and back/leg pain. Hospital medicine and NS following. Discharge plan continues to be home (with boyfriend) with no needs. CM available if this changes. Date Signed: 04/19/2018 12:55 PM Electronically Signed By:Maxine Lizarraga RN Case Management Discharge Plan Note Case Management Discharge Discharge Order Complete? Answers: Yes Patient to Obtain Answers: via Family Medications Transportation Arranged Answers: Family/Friends Transport will Pick (Date 04/20/2018 12:00 AM & Time) Family Notified Answers: Yes Notes: by pt Discharge Comments Notes: Pt to discharge independently to home of boyfriend's father who also provided transportation. Pt to follow up with [facility] and make appointment on her own. No CM needs identified at this time. Date Signed: 04/20/2018 05:40 PM Electronically Signed By:Luana Pradhan Intervention Information
== END 2018-04-20 16:31 | disposition home or self-care (01) | DRG 139 ==
LOC: F3E 18:54
PROVIDERS: ADMIT Family Medicine; ATTEND Family Medicine
PROC: 0W993ZZ Drainage of Right Pleural Cavity, Percutaneous Approach (ICD-10-PCS; 2018-04-14)
PROC: 3E0S33Z Introduction of Anti-inflammatory into Epidural Space, Percutaneous Approach (ICD-10-PCS; principal; 2018-04-18)
PROC: 3E0S3BZ Introduction of Anesthetic Agent into Epidural Space, Percutaneous Approach (ICD-10-PCS; principal; 2018-04-18)
DX: J18.9 Pneumonia, unspecified organism (principal); A41.9 Sepsis, unspecified organism; J90 Pleural effusion, not elsewhere classified; E11.9 Type 2 diabetes mellitus without complications; J45.901 Unspecified asthma with (acute) exacerbation; I10 Essential (primary) hypertension; M79.7 Fibromyalgia; F41.9 Anxiety disorder, unspecified; R10.31 Right lower quadrant pain; M54.16 Radiculopathy, lumbar region; Z87.891 Personal history of nicotine dependence; Z59.0 Homelessness
CPT/HCPCS: 96374; A9585; J0456; J0696; J1170; J1885; J1940; J2310; J2405; J2930; J3010; J3301; J3370; J7512; J7613; Q9967

== ENCOUNTER 2018-06-24 09:29 | Emergency (ER) | payer MEDICAID ==
--- NOTE | 2018-06-24 09:48 | EDPHY ---
H & P Stated Complaint: l sciatic pain hosp in apr for same was supposed to have surgery Time Seen by Provider: 06/24/18 09:42 HPI/ROS: CHIEF COMPLAINT: Low back pain HISTORY OF PRESENT ILLNESS: The patient is a 42-year-old female with a history of chronic low back pain. She was admitted to the hospital in April for pneumonia and at that time had an MRI the over lumbar spine that revealed moderate to severe foraminal stenosis at L5-S1. She was referred to Neurosurgery. She states that while she was in the hospital she got a steroid injection and that helped significantly. Since that time she has not followed up in states that is because she is not sure she wants to have surgery. Over last several days her pain has gotten significantly worse. She denies weakness or numbness. She denies bowel or bladder abnormalities. She is ambulatory here in the department. No fevers. No new trauma. Severity: Severe Modifying factors: Moderate improvement with ibuprofen and Tylenol REVIEW OF SYSTEMS: Constitutional: denies: chills, fever, recent illness, recent injury EENTM: denies: blurred vision, double vision, nose congestion Respiratory: denies: cough, shortness of breath Cardiac: denies: chest pain, irregular heart rate, lightheadedness, palpitations Gastrointestinal/Abdominal: denies: abdominal pain, diarrhea, nausea, vomiting, blood streaked stools Genitourinary: denies: dysuria, frequency, hematuria, pain Musculoskeletal: See HPI Skin: denies: lesions, rash, jaundice, bruising Neurological: denies: headache, numbness, paresthesia, tingling, dizziness, weakness Hematologic/Lymphatic: denies: blood clots, easy bleeding, easy bruising Immunologic/allergic: denies: HIV/AIDS, transplant 10 systems reviewed and negative except as noted EXAM: GENERAL: Well-appearing, well-nourished and in no acute distress. HEAD: Atraumatic, normocephalic. EYES: Pupils equal round and reactive to light, extraocular movements intact, sclera anicteric, conjunctiva are normal. ENT: TMs normal, nares patent, oropharynx clear without exudates. Moist mucous membranes. NECK: Normal range of motion, supple without lymphadenopathy or JVD. LUNGS: Breath sounds clear to auscultation bilaterally and equal. No wheezes rales or rhonchi. HEART: Regular rate and rhythm without murmurs, rubs or gallops. ABDOMEN: Soft, nontender, normoactive bowel sounds. No guarding, no rebound. No masses appreciated. BACK: Low back pain, no swelling. No CVA tenderness, no spinal tenderness, step-offs or deformities EXTREMITIES: Normal range of motion, no pitting or edema. No clubbing or cyanosis. NEUROLOGICAL: Cranial nerves II through XII grossly intact. Normal speech, normal gait with moderate pain. 5/5 strength, normal movement in all extremities, normal sensation, normal reflexes. can balance on each foot independently. PSYCH: Normal mood, normal affect. SKIN: Warm, dry, normal turgor, no visible rashes or lesions. Source: Patient, Family - Personal History LMP (Females 10-55): 8-14 Days Ago Current Tetanus Diphtheria and Acellular Pertussis (TDAP): Yes Tetanus Vaccine Date: 2016 - Medical/Surgical History Hx Asthma: Yes Hx Chronic Respiratory Disease: No Hx Diabetes: Yes Hx Cardiac Disease: No Hx Renal Disease: No Hx Cirrhosis: No Hx Alcoholism: No Hx HIV/AIDS: No Hx Splenectomy or Spleen Trauma: No Other PMH: NIDDM "got off metformin", asthma, IBS, fibromyalgia., PNA, influenza sciatica - Social History Smoking Status: Current every day smoker Constitutional: Initial Vital Signs Temperature (C) 37 C 06/24/18 09:33 Heart Rate 129 H 06/24/18 09:33 Respiratory Rate 18 06/24/18 09:33 Blood Pressure 191/105 H 06/24/18 09:33 O2 Sat (%) 97 06/24/18 09:33 O2 Delivery Mode Room Air Allergies/Adverse Reactions: No Known Allergies Allergy (Verified 04/12/18 14:04) Home Medications: Medication Instructions Recorded Fluticasone Hfa 220 Mcg [Flovent 1 puffs IH BID 04/12/18 220 MCG Hfa MDI (*)] Lisinopril [Zestril 40 mg (*)] 40 mg PO DAILY 04/13/18 Albuterol [Proventil Neb] 3 ml IH QID PRN #1 box 04/20/18 Gabapentin [Neurontin 300 MG (*)] 600 mg PO TID #30 cap 04/20/18 Ipratropium/Albuterol [Duoneb (*)] 3 ml IH QID PRN #1 box 04/20/18 Cyclobenzaprine [Flexeril 10 MG 10 mg PO TID PRN #10 tab 06/24/18 (*)] Medical Decision Making ED Course/Re-evaluation: Patient is somewhat discouraged. She was hoping that we could do a spinal steroid injection here in the emergency department. We discussed various medications to try to control her symptoms. She states that she just finished a steroid burst. She states that Tylenol and ibuprofen are not working home. I informed her are no narcotic policy and she states she does not want narcotics any ways because medicate is labeled her as a drug seeker. She ultimately agreed to try taking Flexeril because that has worked for her in the past. She refused a referral to physical therapy. I will refer her back to Neurosurgery. She has not followed up with them previously because she states she is not sure that she wants surgery. Differential Diagnosis: Partial list of the Differential diagnosis considered include but were not limited to; low back strain, radiculopathy and although unlikely based on the history and physical exam, I also considered infection, trauma, tumor. I discussed these differential diagnoses and the plan with the patient as well as the usual and expected course. The patient understands that the diagnosis is provisional and that in medicine we are not always correct and that further workup is often warranted. Usual and customary warnings were given. All of the patient's questions were answered. The patient was instructed to return to the emergency department should the symptoms at all worsen or return, otherwise to followup with the physician as we discussed. Departure - Departure Disposition: Home, Routine, Self-Care Clinical Impression: Low back pain Qualifiers: Chronicity: chronic Back pain laterality: midline Sciatica presence: without sciatica Qualified Code(s): M54.5 - Low back pain; G89.29 - Other chronic pain; G89.29 - Other chronic pain Condition: Fair Instructions: Acute Low Back Pain (ED) Referrals: HUGO GRIFFITH [Primary Care Provider] - As per Instructions Ilya Vizcarra MD [Medical Doctor] - As per Instructions Prescriptions: Cyclobenzaprine [Flexeril 10 MG (*)] 10 mg PO TID PRN #10 tab PRN Reason: Spasms
[2018-06-24 09:51] VITALS: BP 165/99
== END 2018-06-24 09:55 | disposition home or self-care (01) ==
DX: M54.5 Low back pain (principal); G89.29 Other chronic pain; M48.07 Spinal stenosis, lumbosacral region

== ENCOUNTER 2018-07-14 14:50 | Inpatient (IN) | payer MEDICAID ==
[2018-07-14] MEDS ORDERED: NS 1,000 ML IV ONE ×2 (14:56→15:06)
[2018-07-14] MEDS ORDERED: HALOPERIDOL LACT 5 MG/ML INJ IM ONE (14:57)
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
[2018-07-14] MEDS ORDERED: LORazepam 2 MG/ML INJ ONE ×2 (15:04→17:35)
[2018-07-14] MEDS ORDERED: LORazepam 2 MG/ML INJ IM ONE (15:05)
[2018-07-14] MEDS ORDERED: MIDAZOLAM 10 MG/2 ML VIAL ONE (15:16)
[2018-07-14] MEDS ORDERED: MIDAZOLAM 2 MG/2 ML VIAL IVP ONE (15:32)
[2018-07-14 15:36] LABS: PLATELET COUNT 379 10^3/uL (150-400)
[2018-07-14] MEDS ORDERED: IOPAMIDOL (ISOVUE-300) 100 ML BTL ONE (15:42)
[2018-07-14 15:51] LABS: INR 0.89 (0.83-1.16); PROTIME(PATIENT) 11.7 SEC (12.0-15.0)
[2018-07-14] MEDS ORDERED: FLUMAZENIL 0.5 MG/5 ML MDV IVP PRN (17:45)
[2018-07-14] MEDS ORDERED: LORazepam 2 MG/ML INJ IVP ONE (17:45)
[2018-07-14] MEDS: DEXMEDETOMIDINE HCL 400 MCG in NS 100 ML IV SCH ×2 (17:45→21:23)
[2018-07-14] MEDS ORDERED: ONDANSETRON 4 MG/2 ML VIAL IVP PRN ×2 (18:32→18:43)
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
[2018-07-14] MEDS ORDERED: HYDROmorphONE/DILAUDID 1 MG/ML INJ IVP PRN (18:43)
[2018-07-14] MEDS ORDERED: FAMOTIDINE 20 MG/2 ML SDV IVP ONE (18:44)
[2018-07-14] MEDS ORDERED: NS 1,000 ML IV SCH (18:45)
[2018-07-14] MEDS: D5W 1/2 NS W/ 20 KCl/L 1,000 ML IV SCH (19:47)
[2018-07-14] MEDS: LORazepam 2 MG/ML INJ IVP PRN ×2 (20:04→21:38)
[2018-07-14] MEDS: FAMOTIDINE 20 MG/NACL 50 ML IV SCH (20:45)
[2018-07-14] MEDS: LORazepam 2 MG/ML INJ IVP SCH (23:51)
[2018-07-15] MEDS: DEXMEDETOMIDINE HCL 400 MCG in NS 100 ML IV SCH ×6 (01:33→21:57)
[2018-07-15] MEDS: LORazepam 2 MG/ML INJ IVP PRN ×5 (04:04→23:31)
[2018-07-15 04:10] LABS: INR 1.01 (0.83-1.16); PROTIME(PATIENT) 12.9 SEC (12.0-15.0)
[2018-07-15 04:19] LABS: PLATELET COUNT 261 10^3/uL (150-400)
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
[2018-07-15] MEDS: LORazepam 2 MG/ML INJ IVP SCH ×3 (05:21→17:17)
[2018-07-15] MEDS: D5W 1/2 NS W/ 20 KCl/L 1,000 ML IV SCH ×2 (06:48→17:16)
[2018-07-15] MEDS: FAMOTIDINE 20 MG/NACL 50 ML IV SCH (08:38)
[2018-07-15] MEDS: THIAMINE HCL 500 MG in NS 100 ML IV SCH (08:41)
[2018-07-15] MEDS: ENOXAPARIN 40 MG/0.4 ML SYR SC SCH (09:26)
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
[2018-07-15] MEDS: LISINOPRIL 40 MG TAB PO SCH (11:24)
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
[2018-07-15] MEDS: FAMOTIDINE 20 MG TAB PO SCH (20:45)
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
[2018-07-16] MEDS: LORazepam 2 MG/ML INJ IVP SCH ×3 (01:18→11:02)
[2018-07-16] MEDS: LORazepam 2 MG/ML INJ IVP PRN ×6 (02:33→14:22)
[2018-07-16] MEDS ORDERED: HALOPERIDOL LACT 5 MG/ML INJ IVP PRN (05:16)
[2018-07-16] MEDS ORDERED: METOPROLOL TARTRATE 5 MG/5 ML INJ IVP PRN (05:35)
[2018-07-16] MEDS: DEXMEDETOMIDINE HCL 400 MCG in NS 100 ML IV SCH ×3 (05:48→14:23)
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
[2018-07-16] MEDS: THIAMINE HCL 500 MG in NS 100 ML IV SCH (10:12)
[2018-07-16] MEDS: LISINOPRIL 40 MG TAB PO SCH (10:14)
[2018-07-16] MEDS: FAMOTIDINE 20 MG TAB PO SCH ×2 (10:14→19:39)
[2018-07-16] MEDS: ENOXAPARIN 40 MG/0.4 ML SYR SC SCH (10:14)
[2018-07-16] MEDS: D5W 1/2 NS W/ 20 KCl/L 1,000 ML IV SCH (14:25)
--- NOTE | 2018-07-16 15:46 | ASMTCMCOM ---
CM Note CM Note Notes: CM notified by RN that pt reports that she has two kids and that one is being taken care of by her aunt. The RN was instructed to call CPS and CM provided her with the phone number. CM attempted to engage pt to obtain address and phone number of where the children may be staying. The numbers provided in the chart and on the board in pt's room are for pt's boyfriend, Esther ([phone]). CM made numerous attempts to contact him to obtain updated information on children. Pt's RN is going to continue to engage pt to obtain more information and RN will make CPS report. At this time pt is on Medical Incapacitated Hold per Dr. De La Rosa. CM to follow. Plan: TBD Date Signed: 07/16/2018 03:45 PM Electronically Signed By:JOSH Goncalves
[2018-07-16] MEDS: LORazepam 1 MG TAB PO SCH ×2 (19:39→23:42)
[2018-07-16] MEDS: ACETAMINOPHEN 325 MG TAB PO PRN (19:40)
[2018-07-16] MEDS: traMADol 50 MG TAB PO PRN (20:18)
[2018-07-17] MEDS: traMADol 50 MG TAB PO PRN ×2 (02:21→20:47)
[2018-07-17] MEDS: ACETAMINOPHEN 325 MG TAB PO PRN ×2 (02:21→16:34)
[2018-07-17] MEDS: FAMOTIDINE 20 MG TAB PO SCH ×2 (07:26→21:10)
[2018-07-17] MEDS: ENOXAPARIN 40 MG/0.4 ML SYR SC SCH (07:26)
[2018-07-17] MEDS: LISINOPRIL 40 MG TAB PO SCH (07:26)
[2018-07-17] MEDS: LORazepam 1 MG TAB PO SCH (07:26)
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
--- NOTE | 2018-07-17 12:42 | ASMTCMCOM ---
CM Note CM Note Notes: 07/17/2018 Case Management Note Discussed pt during rounds this morning. Pt is requiring sitter. Cognition is improving, medical incapacity hold has been discontinued by . Discussed w/PT who is recommending SNF rehab d/t unsteadiness with gait. Discussed w/MD, will hold off on ULTC 100 for one more day to see if pt balance improves as CIWA protocol is completed. Met w/pt and Krista from ethics to discuss d/c needs. Confirmed pt has not completed coordinated entry. Pt has been staying at [facility] recently. Pt will need to discharge to coordinated entry to access community supports. Pt refers to her boyfriend Trae as her , though they are not . Trae works at [employer] on . Pt unable to provide phone number to contact Trae. Pt reports have family in the area, but does not feel they are wanting to help her. Pt has a 27 year old son, 21 year old son, 3 year old granddaughter and a 4 year old grandson. Pt did not provide names when asked. Pt identified 15 year old daughter Angi who attends [employer] and lives with her biological father Patric Hauser. Pt reports having custody of her 9 y.o. cousin Wesley who attends [employer] in [place]. Wesley is staying with pt Aunt. [facility] [place]. Case Management d/c poc: to be determined. Case Management to follow. Date Signed: 07/17/2018 12:41 PM Electronically Signed By:Patricia Parrish RN
[2018-07-17] MEDS ORDERED: D50W 25 GM/50 ML SYR IVP PRN (13:18)
[2018-07-17] MEDS: GABAPENTIN 300 MG CAP PO SCH ×2 (16:34→21:10)
[2018-07-17] MEDS: THIAMINE HCL 100 MG TAB PO SCH (18:27)
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
[2018-07-17] MEDS: INSULIN LISPRO 100 UNIT/ML SC SCH (18:48)
[2018-07-17] MEDS: NICOTINE 21 MG/24 HR PATCH TD SCH (21:19)
[2018-07-17] MEDS: LORazepam 1 MG TAB PO PRN (21:44)
[2018-07-18] MEDS: traMADol 50 MG TAB PO PRN (02:53)
[2018-07-18] MEDS: LORazepam 1 MG TAB PO PRN (02:58)
[2018-07-18] MEDS: ACETAMINOPHEN 325 MG TAB PO PRN ×2 (06:25→18:20)
[2018-07-18] MEDS: INSULIN LISPRO 100 UNIT/ML SC SCH ×3 (07:59→17:41)
[2018-07-18] MEDS: THIAMINE HCL 100 MG TAB PO SCH (09:13)
[2018-07-18] MEDS: GABAPENTIN 300 MG CAP PO SCH ×3 (09:13→21:33)
[2018-07-18] MEDS: FAMOTIDINE 20 MG TAB PO SCH ×2 (09:13→21:33)
[2018-07-18] MEDS: LISINOPRIL 40 MG TAB PO SCH (09:13)
[2018-07-18] MEDS: ENOXAPARIN 40 MG/0.4 ML SYR SC SCH (09:13)
[2018-07-18] MEDS: NICOTINE 21 MG/24 HR PATCH TD SCH (09:14)
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
--- NOTE | 2018-07-18 21:17 | ASMTCMCOM ---
CM Note CM Note Notes: Nika has been through coordinated entry and has used [facility] at [facility]. She can use the Prison bed for one night but will need to find alternate sleeping quarters after that evening. We are able to call each night for the residential bed if needed for multiple nights. Nika and her boyfriend can eat and hang out at the [facility] off of [address], and if the overflow is open they can sleep there. Maxine Lizarraga [facility] RN, made aware of Rosette's upcoming discharge. Date Signed: 07/18/2018 09:16 PM Electronically Signed By:Jovana Smith RN
[2018-07-18] MEDS ORDERED: MELATONIN 3 MG TAB PO SCH (22:45)
[2018-07-18] MEDS: diphenhydrAMINE 25 MG CAP PO PRN (22:54)
[2018-07-19] MEDS: diphenhydrAMINE 25 MG CAP PO PRN (02:14)
[2018-07-19] MEDS: traMADol 50 MG TAB PO PRN ×2 (02:14→11:48)
[2018-07-19] MEDS: INSULIN LISPRO 100 UNIT/ML SC SCH ×2 (09:49→12:08)
[2018-07-19] MEDS: FAMOTIDINE 20 MG TAB PO SCH (09:50)
[2018-07-19] MEDS: THIAMINE HCL 100 MG TAB PO SCH (09:50)
[2018-07-19] MEDS: GABAPENTIN 300 MG CAP PO SCH (09:50)
[2018-07-19] MEDS: NICOTINE 21 MG/24 HR PATCH TD SCH (09:50)
[2018-07-19] MEDS: LISINOPRIL 40 MG TAB PO SCH (09:55)
[2018-07-19 09:56] VITALS: BP 150/100
[2018-07-19] MEDS: ENOXAPARIN 40 MG/0.4 ML SYR SC SCH (09:56)
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
--- NOTE | 2018-07-19 11:57 | ASMTLACE ---
SERGE Length of stay for Answers: 4-6 days current admission Acuity / Level of Answers: Yes Care: Did the patient have an inpatient admission? Comorbidities - select Answers: Diabetes (uncontrolled or all that apply controlled) Other Notes: HTN # of Emergency department Answers: 5-8 visits in the last 6 months Social determinants Answers: History of substance abuse (ETOH, street drugs, prescription drugs, etc.) Mental health diagnosis (anxiety, depression, pers onality disorders, etc.) Score: 19 Date Signed: 07/19/2018 11:57 AM Electronically Signed By:Angela Morejon RN
--- NOTE | 2018-07-19 12:01 | ASMTCMCOM ---
CM Note CM Note Notes: Met with pt this am, gave her clothes, shoes, and bus passes. She declines bed at the [facility], states that brother is giving them money to get stuff out of car in the pound. No other needs, etoh resources given yesterday. DC Plan: Independent Date Signed: 07/19/2018 12:01 PM Electronically Signed By:Angela Morejon RN
[2018-07-19] MEDS ORDERED: LORazepam 2 MG/ML INJ IVP SCH (18:31)
[2018-07-19] MEDS ORDERED: MELATONIN 3 MG TAB PO SCH (21:00)
== END 2018-07-19 12:45 | disposition home or self-care (01) | DRG 52 ==
LOC: EDUNIT# → F2N 17:33 → OBSVTOIN 17:46 → F3N 07-17 12:45
PROVIDERS: ADMIT Surgery; ATTEND Internal Medicine
DX: G92 Toxic encephalopathy (principal); F10.239 Alcohol dependence with withdrawal, unspecified; F10.229 Alcohol dependence with intoxication, unspecified; S02.82XA Fracture of other specified skull and facial bones, left side, initial encounter for closed fracture; S80.02XA Contusion of left knee, initial encounter; S30.1XXA Contusion of abdominal wall, initial encounter; V47.5XXA Car driver injured in collision with fixed or stationary object in traffic accident, initial encounter; Y92.410 Unspecified street and highway as the place of occurrence of the external cause; F15.90 Other stimulant use, unspecified, uncomplicated; E11.9 Type 2 diabetes mellitus without complications; M79.7 Fibromyalgia; I10 Essential (primary) hypertension; J45.909 Unspecified asthma, uncomplicated; Z87.01 Personal history of pneumonia (recurrent); Z59.0 Homelessness
CPT/HCPCS: 80305; 82435-PO; 82565-PO; 82607-90; 82947-PO; 84132-PO; 84295-PO; 84520-PO; 85014-ER; 92507-GN; 92523-GN; 92610-GN; 96374; 97116-GP; 97162-GP; 97165-GO; 97530-GO; 97535-GO; G0480; J1170; J1630; J1650; J1815; J2060; J2250; J3411; Q9967

== ENCOUNTER 2018-07-28 14:33 | Emergency (ER) | payer MEDICAID ==
[~2018-07-28 14:33] MED LIST changes: -CLINDAMYCIN 150MG PREPACK#6 BTL TAKEHOME ONE; +GABAPENTIN 300 MG CAP PO SCH; +LISINOPRIL 40 MG TAB PO SCH
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
[2018-07-28] MEDS ORDERED: CHLORDIAZEPOXIDE 25MG PREPK#6 BTL TAKEHOME ONE (15:19)
[2018-07-28] MEDS ORDERED: ALBUTEROL INH PREPACK MDI TAKEHOME ONE (15:19)
[2018-07-28 16:41] VITALS: BP 116/86
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
== END 2018-07-28 16:47 | disposition home or self-care (01) ==
LOC: EDUNIT#
DX: F10.20 Alcohol dependence, uncomplicated (principal); I10 Essential (primary) hypertension

== ENCOUNTER 2018-09-01 17:51 | Emergency (ER) | payer MEDICAID | END 2018-09-01 19:32 | disposition home or self-care (01) ==

== ENCOUNTER 2018-09-09 10:01 | Emergency (ER) | payer MEDICAID | END 2018-09-09 11:00 | disposition home or self-care (01) ==

== ENCOUNTER 2018-09-17 12:38 | Emergency (ER) | payer MEDICAID | END 2018-09-17 13:31 | disposition home or self-care (01) ==